=== PATIENT | female | born 1965 | race African-American/Black ===

== ENCOUNTER → 2016-08-19 | Outpatient (CLI) | payer MEDICARE, OTHER ==
[2016-05-18 12:45] VITALS: BP 138/69
[~2016-08-19] MED LIST: AMLO10TA4 PO; DICY20TA30 PO; FAMO-63 PO; GABA-586 PO; HYDR-2762 PO; HYDR-971 PO; INSU100I17 SQ; INSU100I18 SQ; LATA2.5D3 EACHEYE; LISI40TA PO; LOSA50TA6 PO; METF10002 PO; ONDA4TAB10 SL; PANT40TA5 PO; PROAIR HFA8.5 GM IH; PROM25TA10 PO; TRAZ100T12 PO; VENL150C6 PO
--- NOTE | 2016-08-19 11:38 | RAD ---
PROCEDURE MRI lumbar spine without contrast. HISTORY Low back pain with right leg radiculopathy for 6 years TECHNIQUE Sagittal and axial T1 and T2 and sagittal STIR images were acquired of the lumbar spine. Contrast: None COMPARISON None FINDINGS Most inferior fully formed intervertebral disc space is considered L5-S1. Lumbar vertebral body stature and AP alignment are adequate. There is mild degenerative disc disease L5-S1. There are posterior radial and annular tears at L5-S1. Conus terminates at L2-3. There is nonspecific edema of the posterior subcutaneous fat of the lower back. L3-4: Spinal canal and neural foramina are adequate. L4-5: There is moderate buckling of the ligamentum flavum and mild to moderate facet degenerative change. There is negligible disc osteophyte complex. There is mild narrowing of the right neural foramen, left neural foramen adequate. Spinal canal is overall adequate. L5-S1: There is severe right and mild to moderate left facet hypertrophic change. There is mild buckling of the ligamentum flavum. There is minimal bulge. There is mild narrowing of the right neural foramen, left neural foramen adequate. There is very mild narrowing of the far posterior lateral recesses greater on the right. S1-S2: Spinal canal and neural foramina are adequate. IMPRESSION 1. Most inferior fully formed intervertebral disc space is considered L5-S1. There is mild degenerative disc disease at L5-S1. There is no significant lumbar spinal stenosis, very mild narrowing of the far posterior lateral recesses greater on the right at L5-S1. There is mild narrowing of the right L4-5 and L5-S1 neural foramina. Electronically signed by: Ke Downs MD (Aug 19, 2016 11:37:03)
== END | disposition home or self-care (01) ==
LOC: MRI 09:45
PROVIDERS: ATTEND Internal Medicine
DX: M51.37 Other intervertebral disc degeneration, lumbosacral region (principal)
CPT/HCPCS: 72148

== ENCOUNTER 2017-12-23 13:56 | Emergency (ER) | payer MEDICARE, OTHER ==
[2017-12-23 14:30] LABS: BILIRUBIN,URINE NEGATIVE (NEG); CLARITY,URINE CLEAR; COLOR,URINE YELLOW; GLUCOSE,URINE NEGATIVE (NEG); NITRITE,URINE NEGATIVE (NEG); PH,URINE 5.5; PROTEIN,URINE 100 mg/dL (NEG-TRACE)
[2017-12-23 14:39] LABS: BACTERIA,URINE FEW /HPF (0-FEW); RBC,URINE 0 /HPF (0-2); SQUAMOUS EPITHELIAL CELL,UR MANY /LPF
[2017-12-23 14:40] LABS: HYALINE CASTS, URINE OCCASIONAL /HPF
[2017-12-23 14:41] LABS: ADD MAN DIFF? NO
[2017-12-23 14:47] LABS: BASO % 0 % (0-3); EOS % 0 % (0-3); HEMATOCRIT 34.9 % (36.0-47.0); HEMOGLOBIN 11.5 g/dL (12.0-15.5); LYMPH # 1.2 x10^3/uL (1.0-4.8); LYMPH % 14 % (24-48); MEAN CORPUSCULAR HEMOGLOBIN 30 pg (25-35); MEAN CORPUSCULAR HGB CONC 33 g/dL (31-37); MEAN CORPUSCULAR VOLUME 91 fL (79-100); MONO # 0.4 x10^3/uL (0.0-1.1); MONO % 5 % (0-9); NEUT # 6.5 x10^3uL (1.8-7.7); NEUT % 81 % (31-73); PLATELET COUNT 282 x10^3/uL (140-400); RED BLOOD COUNT 3.83 x10^6/uL (3.50-5.40); RED CELL DISTRIBUTION WIDTH 14.1 % (11.5-14.5); WHITE BLOOD COUNT 8.1 x10^3/uL (4.0-11.0)
[2017-12-23] MEDS: IV NORMAL SALINE 1000ML BAG 1,000 ML IV (14:55)
[2017-12-23] MEDS: ONDANSETRON PF 4 MG/2 ML VIAL. IV (14:56)
[2017-12-23 14:57] LABS: ANION GAP 6 (6-14); BLOOD UREA NITROGEN 34 mg/dL (7-20); BUN/CREATININE RATIO 38 (6-20); CALCIUM 10.1 mg/dL (8.5-10.1); CARBON DIOXIDE 30 mmol/L (21-32); CHLORIDE 102 mmol/L (98-107); CREATININE 0.9 mg/dL (0.6-1.0); GLUCOSE 126 mg/dL (70-99); SODIUM 138 mmol/L (136-145)
[2017-12-23] MEDS: MORPHINE SULFATE 4 MG/ML DISP.SYRIN. IV (14:57)
[2017-12-23 14:58] LABS: BASE EXCESS ABG 3 mmol/L (-3-3); HCO3 ABG 29 mmol/L (21-28); PCO2 ABG 47 mmHg (35-46); PH ABG 7.41 (7.35-7.45); PO2 ABG 70 mmHg (75-108); SAT O2 ABG 93 % (92-99)
[2017-12-23 14:59] LABS: FIO2 ABG 21
[2017-12-23 15:02] LABS: ALBUMIN/GLOBULIN RATIO 0.8 (1.0-1.7); ALK PHOS 94 U/L (46-116); ALT (SGPT) 38 U/L (14-59); AST (SGOT) 53 U/L (15-37); LIPASE 116 U/L (73-393); TOTAL BILIRUBIN 0.5 mg/dL (0.2-1.0); TOTAL PROTEIN 9.2 g/dL (6.4-8.2)
[2017-12-23 15:04] LABS: LACTIC ACID 1.5 mmol/L (0.4-2.0)
[2017-12-23 15:05] LABS: TROPONINI < 0.017 ng/mL (0.000-0.055)
[2017-12-23 16:38] LABS: POC GLUCOSE 120 mg/dL (70-99)
== END 2017-12-23 16:54 | disposition home or self-care (01) ==
LOC: ER 13:56
DX: R10.84 Generalized abdominal pain (principal); R11.2 Nausea with vomiting, unspecified; N28.1 Cyst of kidney, acquired; E11.40 Type 2 diabetes mellitus with diabetic neuropathy, unspecified; I10 Essential (primary) hypertension; G89.29 Other chronic pain; Z90.710 Acquired absence of both cervix and uterus; Z88.8 Allergy status to other drugs, medicaments and biological substances
CPT/HCPCS: 36415; 36600; 74176; 80053; 81001; 82805; 82962; 83605; 83690; 84484; 85025; 93005; 96361; 96374; 96375; 99285-25; J2270; J2405; J7030

== ENCOUNTER 2018-03-21 15:03 | Emergency (ER) | payer MEDICARE, OTHER ==
[~2018-03-21] VITALS: Ht 175.3 cm; Wt 108.9 kg
[~2018-03-21 15:03] MED LIST changes: +AZIT250T PO; +LISI-130 PO; -LISI40TA PO; -LOSA50TA6 PO; +LOSA50TA7 PO; -METF10002 PO; +METF10007 PO; +PROAIR HFA8.5 GM INH; +SULF1TAB24 PO; +TRAZ-86 PO; -TRAZ100T12 PO
[2018-03-21] MEDS ORDERED: ONDANSETRON PF 4 MG/2 ML VIAL. IV ONE (15:30)
[2018-03-21] MEDS ORDERED: cloNIDine HCL 0.1 MG TABLET PO ONE (15:30)
[2018-03-21] MEDS ORDERED: IV NORMAL SALINE 1000ML BAG 1,000 ML IV ONE (15:30)
[2018-03-21] MEDS ORDERED: DICYCLOMINE HCL 10 MG CAPSULE PO ONE (15:30)
[2018-03-21] MEDS ORDERED: MORPHINE SULFATE 10 MG/ML VIAL. IV ONE (15:30)
[2018-03-21] MEDS ORDERED: CONTRAST GIVEN. MC PRN (15:45)
[2018-03-21] MEDS ORDERED: IOHEXOL 300 MG/ML 100ML VIAL. IV ONE (15:45)
--- NOTE | 2018-03-21 15:50 | PHYS DOC ---
Past Medical History Past Medical History: Diabetes-Type II, Hypertension Additional Past Medical Histor: neuropathy, CHRONIC BACK PAIN Past Surgical History: Hysterectomy, Other Additional Past Surgical Histo: CARPAL TUNNEL, TUMOR BIOPSY IN LEFT BREAST, eye surgery Alcohol Use: None Drug Use: None Adult General Chief Complaint Chief Complaint: NAUSEA/VOMITING/DIARRHA HPI HPI Patient is a 53 year old female with history of hypertension, diabetes type 2, who presents today complaining of 8 out of 10 generalized abdominal pain with nausea vomiting and slight loose stools that begun today. Patient states she believes she had bad chicken Seven yesterday night, she also states it could be her blood sugar though per EMS report her blood sugar was 154. Patient denies any hematemesis or melena. She was diaphoretic on arrival to the ED. She states the diarrhea is not as bad as the nausea and vomiting. Review of Systems Review of Systems Constitutional: Denies fever or chills [] Eyes: Denies change in visual acuity, redness, or eye pain [] HENT: Denies nasal congestion or sore throat [] Respiratory: Denies cough or shortness of breath [] Cardiovascular: No additional information not addressed in HPI [] GI: Reports abdominal pain, nausea vomiting and diarrhea : Denies dysuria or hematuria [] Musculoskeletal: Denies back pain or joint pain [] Integument: Denies rash or skin lesions [] Neurologic: Denies headache, focal weakness or sensory changes [] All other systems were reviewed and found to be within normal limits, except as documented in this note. Current Medications Current Medications Current Medications Medications (Trade) Dose Ordered Sig/Maribel Start Time Stop Time Status Last Admin Dose Admin Clonidine HCl (Catapres) 0.2 mg 1X ONCE 03/21/18 15:30 03/21/18 15:34 DC 03/21/18 16:10 0.2 MG Dicyclomine HCl (Bentyl) 20 mg 1X ONCE 03/21/18 15:30 03/21/18 15:34 DC 03/21/18 16:09 20 MG Info (CONTRAST GIVEN -- Rx MONITORING) 1 each PRN DAILY PRN 03/21/18 15:45 03/23/18 15:44 Iohexol (Omnipaque 300 Mg/ml) 75 ml 1X ONCE 03/21/18 15:45 03/21/18 15:46 DC 03/21/18 17:15 60 ML Morphine Sulfate (Morphine Sulfate) 5 mg 1X ONCE 03/21/18 15:30 03/21/18 15:34 DC 03/21/18 16:10 5 MG Ondansetron HCl (Zofran) 4 mg 1X ONCE 03/21/18 15:30 03/21/18 15:34 DC 03/21/18 16:09 4 MG Sodium Chloride 1,000 ml @ 1,000 mls/hr 1X ONCE 03/21/18 15:30 03/21/18 16:29 DC 03/21/18 16:08 1,000 MLS/HR Allergies Allergies Allergies Coded Allergies Type Severity Reaction Last Updated Verified lisinopril Allergy Severe Swelling 05/17/16 Yes ibuprofen Adverse Reaction Intermediate Nausea and Vomiting 12/22/15 Yes Physical Exam Physical Exam Constitutional: Well developed, well nourished, no acute distress, non-toxic appearance. [] HENT: Normocephalic, atraumatic, bilateral external ears normal, oropharynx moist, no oral exudates, nose normal. [] Eyes: PERRLA, EOMI, conjunctiva normal, no discharge. [] Neck: Normal range of motion, no tenderness, supple, no stridor. [] Cardiovascular:Heart rate regular rhythm, no murmur [] Lungs & Thorax: Bilateral breath sounds clear to auscultation [] Abdomen: Old healed surgical incision midline abdomen. Bowel sounds normal, soft , diffuse abdominal tenderness, no masses, no pulsatile masses. [] Skin: Warm, dry, no erythema, no rash. [] Back: No tenderness, no CVA tenderness. [] Extremities: No tenderness, no cyanosis, no clubbing, ROM intact, no edema. [] Neurologic: Alert and oriented X 3, normal motor function, normal sensory function, no focal deficits noted. Psychologic: Affect normal, judgement normal, mood normal. [] Current Patient Data Vital Signs Vital Signs Date Time Temp Pulse Resp B/P (MAP) Pulse Ox O2 Delivery O2 Flow Rate FiO2 03/21/18 18:34 124/60 (81) 03/21/18 18:04 98 97 Room Air 03/21/18 16:10 18 03/21/18 15:03 97.6 97.6 Lab Values Laboratory Tests Test 03/21/18 16:30 03/21/18 17:45 White Blood Count 9.1 x10^3/uL (4.0-11.0) Red Blood Count 4.28 x10^6/uL (3.50-5.40) Hemoglobin 13.4 g/dL (12.0-15.5) Hematocrit 39.6 % (36.0-47.0) Mean Corpuscular Volume 93 fL (79-100) Mean Corpuscular Hemoglobin 31 pg (25-35) Mean Corpuscular Hemoglobin Concent 34 g/dL (31-37) Red Cell Distribution Width 14.4 % (11.5-14.5) Platelet Count 276 x10^3/uL (140-400) Neutrophils (%) (Auto) 82 % (31-73) H Lymphocytes (%) (Auto) 13 % (24-48) L Monocytes (%) (Auto) 4 % (0-9) Eosinophils (%) (Auto) 1 % (0-3) Basophils (%) (Auto) 0 % (0-3) Neutrophils # (Auto) 7.5 x10^3uL (1.8-7.7) Lymphocytes # (Auto) 1.2 x10^3/uL (1.0-4.8) Monocytes # (Auto) 0.3 x10^3/uL (0.0-1.1) Eosinophils # (Auto) 0.0 x10^3/uL (0.0-0.7) Basophils # (Auto) 0.0 x10^3/uL (0.0-0.2) Sodium Level 147 mmol/L (136-145) H Potassium Level 3.7 mmol/L (3.5-5.1) Chloride Level 106 mmol/L (98-107) Carbon Dioxide Level 28 mmol/L (21-32) Anion Gap 13 (6-14) Blood Urea Nitrogen 31 mg/dL (7-20) H Creatinine 1.4 mg/dL (0.6-1.0) H Estimated GFR (Cockcroft-Gault) 47.2 BUN/Creatinine Ratio 22 (6-20) H Glucose Level 171 mg/dL (70-99) H Calcium Level 10.6 mg/dL (8.5-10.1) H Total Bilirubin 0.2 mg/dL (0.2-1.0) Aspartate Amino Transferase (AST) 21 U/L (15-37) Alanine Aminotransferase (ALT) 37 U/L (14-59) Alkaline Phosphatase 103 U/L (46-116) Troponin I Quantitative < 0.017 ng/mL (0.000-0.055) [id number]-Type Natriuretic Peptide 21 pg/mL (0-124) Total Protein 9.0 g/dL (6.4-8.2) H Albumin 4.1 g/dL (3.4-5.0) Albumin/Globulin Ratio 0.8 (1.0-1.7) L Lipase 178 U/L (73-393) Ethyl Alcohol Level < 10 mg/dL (0-10) Urine Color Yellow Urine Clarity Clear Urine pH 5.0 Urine Specific [place] >=1.030 Urine Protein 100 mg/dL (NEG-TRACE) Urine Glucose (UA) >=1000 mg/dL (NEG) Urine Ketones (Stick) Negative mg/dL (NEG) Urine Blood Negative (NEG) Urine Nitrite Negative (NEG) Urine Bilirubin Negative (NEG) Urine Urobilinogen Dipstick 0.2 mg/dL (0.2 mg/dL) Urine Leukocyte Esterase Negative (NEG) Urine RBC 0 /HPF (0-2) Urine WBC Occ /HPF (0-4) Urine Squamous Epithelial Cells Occ /LPF Urine Bacteria 0 /HPF (0-FEW) Urine Opiates Screen Pos (NEG) Urine Methadone Screen Neg (NEG) Urine Barbiturates Neg (NEG) Urine Phencyclidine Screen Neg (NEG) Urine Amphetamine/Methamphetamine Neg (NEG) Urine Benzodiazepines Screen Neg (NEG) Urine Cocaine Screen Neg (NEG) Urine Cannabinoids Screen Pos (NEG) Urine Ethyl Alcohol Neg (NEG) Laboratory Tests 03/21/18 16:30 Laboratory Tests 03/21/18 16:30 EKG EKG 16:[address] Simmons sinus rhythm heart rate 94 no STEMI[] Radiology/Procedures Radiology/Procedures []PROCEDURE: PORTABLE CHEST 1V EXAM: CHEST 1 VIEW History: Chest pain COMPARISON: 02/16/2017 TECHNIQUE: Single portable radiograph of the chest FINDINGS: The cardiac silhouette is unremarkable. The lungs are clear bilaterally. The costophrenic sulci are clear and well demarcated. IMPRESSION: No radiographic evidence of an acute cardiopulmonary process. Electronically signed by: Manuel Camp MD (03/21/2018 5:09 PM) [facility] DICTATED and SIGNED BY: MANUEL CAMP MD DATE: 03/21/18 1945 Course & Med Decision Making Course & Med Decision Making Pertinent Labs and Imaging studies reviewed. (See chart for details) This is a 53-year-old female patient presented to the ED today complaining of nausea, vomiting and slight loose stools that begun today. BP on arrival was 170/104 she has not taken her BP medicines. She was given Clonidine 0.2mg. CBC with normal WBC, CMP with creatinine of 1.4, BUN 31. 18:[address] Mock. zayra: pt has normal ct and urine. other labs look okay 650 she is eatingmeal and feeling better. bp 124 systolic. d/c h9ome Dragon Disclaimer Dragon Disclaimer This electronic medical record was generated, in whole or in part, using a voice recognition dictation system. Departure Departure Impression: Primary Impression: Abdominal pain Additional Impression: Hypertension Disposition: 01 HOME, SELF-CARE Condition: STABLE Referrals: ANAND BRENNAN (PCP) Problem Qualifiers PREM GODWIN APRN Mar 21, 2018 15:50 LORENZO MOCK MD Mar 21, 2018 18:55
--- NOTE | 2018-03-21 16:39 | EKG ---
[facility] [address] [place] [address] Test Date: 2018-03-21 Test Time: 16:19:33 Pat Name: LADI NUNEZ Department: Room: Gender: F Medicare Contact Specialist: : 1965 Requested By: PREM GODWIN Order Number: [id number] Reading MD: Cali Magdaleno MD Measurements Intervals [place] Rate: 94 P: 90 CO: 112 QRS: 39 QRSD: 108 T: 59 QT: 378 QTc: 478 Interpretive Statements SINUS RHYTHM Electronically Signed On 03-22-2018 14:03:42 CDT by Cali Magdaleno MD
[2018-03-21 16:43] LABS: BASO % 0 % (0-3); EOS % 1 % (0-3); HEMATOCRIT 39.6 % (36.0-47.0); HEMOGLOBIN 13.4 g/dL (12.0-15.5); LYMPH # 1.2 x10^3/uL (1.0-4.8); LYMPH % 13 % (24-48); MEAN CORPUSCULAR HEMOGLOBIN 31 pg (25-35); MEAN CORPUSCULAR HGB CONC 34 g/dL (31-37); MEAN CORPUSCULAR VOLUME 93 fL (79-100); MONO # 0.3 x10^3/uL (0.0-1.1); MONO % 4 % (0-9); NEUT # 7.5 x10^3uL (1.8-7.7); NEUT % 82 % (31-73); PLATELET COUNT 276 x10^3/uL (140-400); RED BLOOD COUNT 4.28 x10^6/uL (3.50-5.40); RED CELL DISTRIBUTION WIDTH 14.4 % (11.5-14.5); WHITE BLOOD COUNT 9.1 x10^3/uL (4.0-11.0)
[2018-03-21 16:53] LABS: CALCIUM 10.6 mg/dL (8.5-10.1); CREATININE 1.4 mg/dL (0.6-1.0); GFR 47.2; POTASSIUM 3.7 mmol/L (3.5-5.1)
[2018-03-21 17:00] LABS: ALBUMIN 4.1 g/dL (3.4-5.0); ALBUMIN/GLOBULIN RATIO 0.8 (1.0-1.7); TOTAL BILIRUBIN 0.2 mg/dL (0.2-1.0)
--- NOTE | 2018-03-21 17:12 | RAD ---
EXAM: CHEST 1 VIEW History: Chest pain COMPARISON: 02/16/2017 TECHNIQUE: Single portable radiograph of the chest FINDINGS: The cardiac silhouette is unremarkable. The lungs are clear bilaterally. The costophrenic sulci are clear and well demarcated. IMPRESSION: No radiographic evidence of an acute cardiopulmonary process. Electronically signed by: Manuel Camp MD (03/21/2018 5:09 PM) [facility]
[2018-03-21 17:54] LABS: BILIRUBIN,URINE NEGATIVE (NEG); CLARITY,URINE CLEAR; COLOR,URINE YELLOW; NITRITE,URINE NEGATIVE (NEG); PROTEIN,URINE 100 mg/dL (NEG-TRACE); UROBILINOGEN,URINE 0.2 mg/dL (0.2 mg/dL)
[2018-03-21 18:00] LABS: BARBITURATES NEG (NEG); BENZODIAZEPINES NEG (NEG); CANNABINOIDS POS (NEG); COCAINE NEG (NEG); METHADONE NEG (NEG); OPIATES POS (NEG); PHENCYCLIDINE NEG (NEG)
[2018-03-21 18:02] LABS: BACTERIA,URINE 0 /HPF (0-FEW); RBC,URINE 0 /HPF (0-2); SQUAMOUS EPITHELIAL CELL,UR OCC /LPF; WBC,URINE OCC /HPF (0-4)
[2018-03-21 18:03] LABS: AMPHETAMINE/METHAMPHETAMINE NEG (NEG)
--- NOTE | 2018-03-21 18:14 | RAD ---
CT scan of the abdomen and pelvis with contrast 03/21/2018 CLINICAL HISTORY: Abdominal pain, vomiting and diarrhea. TECHNIQUE: After the intravenous administration of 60 cc of Omnipaque 300, contiguous, 5 mm axial sections were obtained through the abdomen and pelvis. One or more of the following individualized dose reduction techniques were utilized for this study: 1. Automated exposure control. 2. Adjustment of the mA and/or kV according to patient size. 3. Use of iterative reconstruction technique. FINDINGS: Comparison study is dated 12/23/2017. Images through the lung bases demonstrate mild cardiomegaly. A 6 mm calcified granuloma is seen involving right lower lobe, unchanged. Minimal dependent subsegmental atelectasis is seen involving both lower lobes. The liver, spleen, pancreas, adrenal glands and right kidney are within normal limits. A 2 mm nonobstructing calculus is seen involving the midpole of the left kidney. Atherosclerotic calcification abdominal aorta is seen. The abdominal aorta tapers normally. The gallbladder is well-distended. No free fluid or free air is within the abdomen. Air and stool is seen throughout the colon. There is no evidence of bowel obstruction. The patient appears to be post appendectomy. Images through the pelvis demonstrate the urinary bladder distended with urine. Calcifications are seen within the pelvis consistent with phleboliths. No free fluid is seen. Very mild S-shaped curvature of the thoracolumbar spine is seen. Degenerative changes are seen involving the lower thoracic and throughout the lumbar spine and both hips. IMPRESSION: No acute abnormality is seen. Electronically signed by: Joseph Rey MD (03/21/2018 6:10 PM) [facility]
[2018-03-21 18:34] VITALS: BP 124/60
== END 2018-03-21 19:06 | disposition home or self-care (01) ==
LOC: ER 15:03
DX: R10.84 Generalized abdominal pain (principal); I10 Essential (primary) hypertension; R11.2 Nausea with vomiting, unspecified; R19.7 Diarrhea, unspecified; G89.29 Other chronic pain; E11.40 Type 2 diabetes mellitus with diabetic neuropathy, unspecified; Z90.710 Acquired absence of both cervix and uterus
CPT/HCPCS: 36415; 71045; 74177; 80053; 80307; 81001; 83690; 83880; 84484; 85025; 93005; 96361; 96374; 96375; 99285; G0480; J2270; J2405; J7030; Q9967; G0479

== ENCOUNTER 2018-03-23 12:59 | Inpatient (IN) | payer MEDICARE, OTHER ==
[~2018-03-23] VITALS: Ht 175.3 cm; Wt 104.3 kg
[2018-03-23] MEDS ORDERED: ONDANSETRON PF 4 MG/2 ML VIAL. IV ONE (14:00)
[2018-03-23] MEDS ORDERED: IV NORMAL SALINE 1000ML BAG 1,000 ML IV ONE (14:00)
[2018-03-23] MEDS ORDERED: amLODIPine BESYLATE 5 MG TABLET PO ONE (14:00)
--- NOTE | 2018-03-23 14:01 | PHYS DOC ---
Past Medical History Past Medical History: Diabetes-Type II, Hypertension Additional Past Medical Histor: neuropathy, CHRONIC BACK PAIN Past Surgical History: Hysterectomy, Other Additional Past Surgical Histo: CARPAL TUNNEL, TUMOR BIOPSY IN LEFT BREAST, eye surgery Alcohol Use: None Drug Use: None Adult General Chief Complaint Chief Complaint: NAUSEA/VOMITING/DIARRHA HPI HPI Patient is a 53 year old F who presents with generalized abdominal pain and n/ v for the last 2 days. She was seen here two days ago for the same. She had labs and fluids, felt better and was dx home with viral enteritis. She denies having diarrhea today. She denies fever or chills. Review of Systems Review of Systems Constitutional: Denies fever or chills [] Respiratory: Denies cough or shortness of breath [] Cardiovascular: Denies chest pain or palpitations. GI: Reports abdominal pain, nausea, vomiting, and diarrhea [] : Denies dysuria or hematuria [] Musculoskeletal: Reports lower back pain - exacerbation of chronic pain Integument: Denies rash or skin lesions [] All other systems were reviewed and found to be within normal limits, except as documented in this note. Current Medications Current Medications Current Medications Medications (Trade) Dose Ordered Sig/Maribel Start Time Stop Time Status Last Admin Dose Admin Amlodipine Besylate (Norvasc) 10 mg 1X ONCE 03/23/18 14:00 03/23/18 14:16 DC 03/23/18 15:15 10 MG Fentanyl Citrate (Fentanyl 2ml Vial) 50 mcg 1X ONCE 03/23/18 15:15 03/23/18 15:17 DC 03/23/18 15:46 50 MCG Ondansetron HCl (Zofran) 4 mg 1X ONCE 03/23/18 14:00 03/23/18 14:16 DC 03/23/18 14:24 4 MG Sodium Chloride 1,000 ml @ 1,000 mls/hr 1X ONCE 03/23/18 14:00 03/23/18 14:59 DC 03/23/18 14:23 1,000 MLS/HR Allergies Allergies Allergies Coded Allergies Type Severity Reaction Last Updated Verified lisinopril Allergy Severe Swelling 05/17/16 Yes ibuprofen Adverse Reaction Intermediate Nausea and Vomiting 12/22/15 Yes Physical Exam Physical Exam Constitutional: Well developed, well nourished, no acute distress, non-toxic appearance. [] HENT: Normocephalic, atraumatic Eyes: PERRLA, EOMI, conjunctiva normal, no discharge. [] Neck: Normal range of motion, no tenderness, supple, no stridor. [] Cardiovascular:Heart rate regular rhythm, no murmur [] Lungs & Thorax: Bilateral breath sounds clear to auscultation [] Abdomen: Bowel sounds normal, soft, diffuse tenderness Skin: Warm, dry, no erythema, no rash. [] Back: No tenderness, no CVA tenderness. [] Extremities: No tenderness, no cyanosis, no clubbing, ROM intact, no edema. [] Neurologic: Alert and oriented X 3, normal motor function, normal sensory function, no focal deficits noted. [] Psychologic: Affect normal, judgement normal, mood normal. [] Current Patient Data Vital Signs Vital Signs Date Time Temp Pulse Resp B/P (MAP) Pulse Ox O2 Delivery O2 Flow Rate FiO2 03/23/18 17:35 112 218/109 (145) 100 Room Air 03/23/18 15:46 24 03/23/18 13:29 97.3 97.3 Lab Values Laboratory Tests Test 03/23/18 14:35 03/23/18 14:50 White Blood Count 12.1 x10^3/uL (4.0-11.0) H Red Blood Count 4.07 x10^6/uL (3.50-5.40) Hemoglobin 12.7 g/dL (12.0-15.5) Hematocrit 37.5 % (36.0-47.0) Mean Corpuscular Volume 92 fL (79-100) Mean Corpuscular Hemoglobin 31 pg (25-35) Mean Corpuscular Hemoglobin Concent 34 g/dL (31-37) Red Cell Distribution Width 14.8 % (11.5-14.5) H Platelet Count 298 x10^3/uL (140-400) Neutrophils (%) (Auto) 80 % (31-73) H Lymphocytes (%) (Auto) 16 % (24-48) L Monocytes (%) (Auto) 4 % (0-9) Eosinophils (%) (Auto) 1 % (0-3) Basophils (%) (Auto) 1 % (0-3) Neutrophils # (Auto) 9.7 x10^3uL (1.8-7.7) H Lymphocytes # (Auto) 1.9 x10^3/uL (1.0-4.8) Monocytes # (Auto) 0.4 x10^3/uL (0.0-1.1) Eosinophils # (Auto) 0.1 x10^3/uL (0.0-0.7) Basophils # (Auto) 0.1 x10^3/uL (0.0-0.2) Sodium Level 146 mmol/L (136-145) H Potassium Level 3.6 mmol/L (3.5-5.1) Chloride Level 105 mmol/L (98-107) Carbon Dioxide Level 29 mmol/L (21-32) Anion Gap 12 (6-14) Blood Urea Nitrogen 27 mg/dL (7-20) H Creatinine 1.1 mg/dL (0.6-1.0) H Estimated GFR (Cockcroft-Gault) 62.4 BUN/Creatinine Ratio 25 (6-20) H Glucose Level 156 mg/dL (70-99) H Calcium Level 11.2 mg/dL (8.5-10.1) H Total Bilirubin 0.3 mg/dL (0.2-1.0) Aspartate Amino Transferase (AST) 29 U/L (15-37) Alanine Aminotransferase (ALT) 37 U/L (14-59) Alkaline Phosphatase 98 U/L (46-116) Total Protein 9.9 g/dL (6.4-8.2) H Albumin 4.4 g/dL (3.4-5.0) Albumin/Globulin Ratio 0.8 (1.0-1.7) L Lipase 110 U/L (73-393) Urine Collection Type Unknown Urine Color Yellow Urine Clarity Clear Urine pH 5.0 Urine Specific [place] >=1.030 Urine Protein 100 mg/dL (NEG-TRACE) Urine Glucose (UA) >=1000 mg/dL (NEG) Urine Ketones (Stick) Negative mg/dL (NEG) Urine Blood Trace (NEG) Urine Nitrite Negative (NEG) Urine Bilirubin Negative (NEG) Urine Urobilinogen Dipstick 0.2 mg/dL (0.2 mg/dL) Urine Leukocyte Esterase Negative (NEG) Urine RBC 1-2 /HPF (0-2) Urine WBC 1-4 /HPF (0-4) Urine Squamous Epithelial Cells Mod /LPF Urine Bacteria Few /HPF (0-FEW) Urine Mucus Slight /LPF Urine Yeast Present /HPF Laboratory Tests 03/23/18 14:35 Laboratory Tests 03/23/18 14:35 EKG EKG EKG -- Rate 95, NSR, no stemi, normal axis[] Radiology/Procedures Radiology/Procedures [] Course & Med Decision Making Course & Med Decision Making Pertinent Labs and Imaging studies reviewed. (See chart for details) Patient was able to tolerate some chicken broth. However, when we talk about disposition, she begins to cry and says she is hurting too bad to go home. She continues to have pain and nausea despite meds. d/w Dr. Martin, accepts admission. Plan: admit Dragon Disclaimer Dragon Disclaimer This electronic medical record was generated, in whole or in part, using a voice recognition dictation system. Departure Departure Impression: Primary Impression: Intractable abdominal pain Disposition: ADMITTED INPATIENT Admitting Physician: Xie. Siddiqui Condition: STABLE Referrals: ANAND BRENNAN (PCP) Attending Signature Attending Signature I have reviewed the PA/NETWORK ENGINEER's note and plan of care. I was available for consultation as needed during the patient's visit in the emergency department. I agree with the clinical impression, plan, and disposition. EMIL TIPTON APRN Mar 23, 2018 14:01 SONY RUBNI DO Mar 26, 2018 06:57
[2018-03-23 14:53] LABS: CALCIUM 11.2 mg/dL (8.5-10.1); CREATININE 1.1 mg/dL (0.6-1.0); GFR 62.4; POTASSIUM 3.6 mmol/L (3.5-5.1)
[2018-03-23 15:02] LABS: BASO # 0.1 x10^3/uL (0.0-0.2); BASO % 1 % (0-3); EOS # 0.1 x10^3/uL (0.0-0.7); EOS % 1 % (0-3); HEMATOCRIT 37.5 % (36.0-47.0); HEMOGLOBIN 12.7 g/dL (12.0-15.5); LYMPH # 1.9 x10^3/uL (1.0-4.8); LYMPH % 16 % (24-48); MEAN CORPUSCULAR HEMOGLOBIN 31 pg (25-35); MEAN CORPUSCULAR HGB CONC 34 g/dL (31-37); MEAN CORPUSCULAR VOLUME 92 fL (79-100); MONO # 0.4 x10^3/uL (0.0-1.1); MONO % 4 % (0-9); NEUT # 9.7 x10^3uL (1.8-7.7); NEUT % 80 % (31-73); PLATELET COUNT 298 x10^3/uL (140-400); RED BLOOD COUNT 4.07 x10^6/uL (3.50-5.40); RED CELL DISTRIBUTION WIDTH 14.8 % (11.5-14.5); WHITE BLOOD COUNT 12.1 x10^3/uL (4.0-11.0)
[2018-03-23 15:03] LABS: ALBUMIN 4.4 g/dL (3.4-5.0); ALBUMIN/GLOBULIN RATIO 0.8 (1.0-1.7); TOTAL BILIRUBIN 0.3 mg/dL (0.2-1.0); TOTAL PROTEIN 9.9 g/dL (6.4-8.2)
[2018-03-23 15:03] LABS: BILIRUBIN,URINE NEGATIVE (NEG); CLARITY,URINE CLEAR; COLOR,URINE YELLOW; NITRITE,URINE NEGATIVE (NEG); PROTEIN,URINE 100 mg/dL (NEG-TRACE); UROBILINOGEN,URINE 0.2 mg/dL (0.2 mg/dL)
[2018-03-23] MEDS ORDERED: fentaNYL PF VIAL 100 MCG/2 ML VIAL IV ONE (15:15)
[2018-03-23 15:26] LABS: BACTERIA,URINE FEW /HPF (0-FEW); SQUAMOUS EPITHELIAL CELL,UR MOD /LPF; YEAST,URINE PRESENT /HPF
--- NOTE | 2018-03-23 16:49 | EKG ---
[facility] [address] [place] [address] Test Date: 2018-03-23 Test Time: 13:47:15 Pat Name: LADI NUNEZ Department: Room: Gender: F Chief Radiologic Technologist: : 1965 Requested By: EMIL TIPTON Order Number: [id number] Reading MD: Measurements Intervals [place] Rate: 94 P: -56 MD: 106 QRS: 34 QRSD: 104 T: 61 QT: 364 QTc: 460 Interpretive Statements SINUS RHYTHM LEFT ATRIAL ABNORMALITY NON SPECIFIC ST DEPRESSION ABNORMAL ECG No previous ECG available for comparison
[2018-03-23] MEDS ORDERED: MORPHINE SULFATE 4 MG/ML VIAL. IV PRN (18:45)
[2018-03-23] MEDS ORDERED: MORPHINE SULFATE 4 MG/ML VIAL. IV ONE (18:45)
[2018-03-23] MEDS ORDERED: HALOPERIDOL LACTATE 5 MG/ML VIAL. IVP ONE (18:45)
[2018-03-23] MEDS ORDERED: ONDANSETRON PF 4 MG/2 ML VIAL. IV PRN (18:45)
[2018-03-23 19:00] VITALS: BP 206/101
[2018-03-23] MEDS ORDERED: INSU100V13 SQ (20:18)
[2018-03-23] MEDS ORDERED: LABETALOL 20 MG/4 ML DISP.SYRIN. IVP PRN (20:30)
[2018-03-23] MEDS ORDERED: INSULIN GLARGINE 300 UNITS/3 ML INSULN.PEN. SQ ONE (20:30)
[2018-03-23] MEDS ORDERED: DEXTROSE 50% 25 GM / 50ML DISP.SYRIN. IV PRN (20:30)
[2018-03-23] MEDS ORDERED: ALBUTEROL SULFATE 2.5 MG/3 ML NEBU. NEB PRN (20:30)
[2018-03-23] MEDS ORDERED: diphenhydrAMINE HCL 25 MG CAPSULE PO PRN (20:30)
[2018-03-23] MEDS: IV NORMAL SALINE 1000ML BAG 1,000 ML IV SCH (20:51)
[2018-03-23] MEDS: LOSARTAN POTASSIUM 50 MG TABLET. PO SCH (21:14)
[2018-03-23 23:00] VITALS: BP 150/54
[2018-03-24 03:00] VITALS: BP 139/77
[2018-03-24 06:29] LABS: BASO % 0 % (0-3); EOS % 0 % (0-3); HEMATOCRIT 34.4 % (36.0-47.0); HEMOGLOBIN 11.5 g/dL (12.0-15.5); LYMPH # 3.1 x10^3/uL (1.0-4.8); LYMPH % 32 % (24-48); MEAN CORPUSCULAR HEMOGLOBIN 31 pg (25-35); MEAN CORPUSCULAR HGB CONC 34 g/dL (31-37); MEAN CORPUSCULAR VOLUME 92 fL (79-100); MONO # 0.9 x10^3/uL (0.0-1.1); MONO % 9 % (0-9); NEUT # 5.8 x10^3uL (1.8-7.7); NEUT % 59 % (31-73); PLATELET COUNT 268 x10^3/uL (140-400); RED BLOOD COUNT 3.72 x10^6/uL (3.50-5.40); RED CELL DISTRIBUTION WIDTH 14.7 % (11.5-14.5); WHITE BLOOD COUNT 9.9 x10^3/uL (4.0-11.0)
[2018-03-24 07:00] VITALS: BP 142/81
[2018-03-24 07:17] LABS: ALBUMIN 3.4 g/dL (3.4-5.0); ALBUMIN/GLOBULIN RATIO 0.7 (1.0-1.7); CREATININE 1.1 mg/dL (0.6-1.0); GFR 62.4; POTASSIUM 3.7 mmol/L (3.5-5.1); TOTAL BILIRUBIN 0.3 mg/dL (0.2-1.0)
[2018-03-24] MEDS: LOSARTAN POTASSIUM 50 MG TABLET. PO SCH (08:32)
[2018-03-24] MEDS: INSULIN LISPRO 300 UNITS/3 ML INSULN.PEN. SQ SCH ×2 (08:36→13:41)
--- NOTE | 2018-03-24 08:39 | PDOC2 ---
GI CONSULT Reason For Consult: Abd pain HPI: HPI: 53 y/o female who has been ill w/ n/v since 03/21/18 after eating chicken adrianne. Came to ER, CT showed no acute abnormality, symptoms improved (she says because was given morphine), was sent home. Appetite didn't improve, tried to eat an orange yesterday, vomited, back to ER and admitted. BP noted to be elevated (initially 224/99). Again, symptoms have improved, she tolerated clear liquids for breakfast, and is asking to go home today. She has a h/o intermittent n/v since 2011 - thinks related to eating certain foods ("treating myself" - names ice cream and cake). H/o DM, seems battles some with hyperglycemia and hypoglycemia. Not sure what last A1c was. Denies reflux/heartburn, dysphagia, hematemesis, abd pain, constipation, hematochezia, melena, and weight loss. Had diarrhea once the day symptoms began. Also talks about back pain - also chronic since 2011 after hysterectomy - worse when the weather changes, uses hydrocodone 7.5mg PRN. No previous EGD. [facility] ( Dr. Lisette Lynne) in 2013 (for screening) showed 2mm adenomatous polyp @ splenic flexure and external hemorrhoids. No GB or pancreas history. Fatty liver noted on past US. PMH: PMH: HTN, HLD, DM, peripheral neuropathy, fatty liver, OA, anxiety, depression, chronic back pain, , hysterectomy, breast biopsy, right CTR FH: Family History: No pertinent hx Social History: Smoke: Quit ALCOHOL: other (used to drink, quit) Drugs: Marijuana ROS: GEN: Denies fevers, chills, sweats HEENT: Denies blurred vision, sore throat CV: Denies chest pain RESP: Denies shortness of air, cough GI: Per HPI : Denies hematuria, dysuria ENDO: Denies weight changes NEURO: Denies confusion, dizziness MSK: +chronic back pain SKIN: Denies jaundice, pruritus Vitals: Vitals: Vital Signs Date Time Temp Pulse Resp B/P (MAP) Pulse Ox O2 Delivery O2 Flow Rate FiO2 03/24/18 07:47 100 Room Air 03/24/18 07:00 98.8 78 18 142/81 (101) 98.8 Labs: Labs: Laboratory Tests Test 03/23/18 14:35 03/23/18 14:50 03/23/18 19:47 03/24/18 05:40 White Blood Count 12.1 x10^3/uL (4.0-11.0) 9.9 x10^3/uL (4.0-11.0) Red Blood Count 4.07 x10^6/uL (3.50-5.40) 3.72 x10^6/uL (3.50-5.40) Hemoglobin 12.7 g/dL (12.0-15.5) 11.5 g/dL (12.0-15.5) Hematocrit 37.5 % (36.0-47.0) 34.4 % (36.0-47.0) Mean Corpuscular Volume 92 fL (79-100) 92 fL (79-100) Mean Corpuscular Hemoglobin 31 pg (25-35) 31 pg (25-35) Mean Corpuscular Hemoglobin Concent 34 g/dL (31-37) 34 g/dL (31-37) Red Cell Distribution Width 14.8 % (11.5-14.5) 14.7 % (11.5-14.5) Platelet Count 298 x10^3/uL (140-400) 268 x10^3/uL (140-400) Neutrophils (%) (Auto) 80 % (31-73) 59 % (31-73) Lymphocytes (%) (Auto) 16 % (24-48) 32 % (24-48) Monocytes (%) (Auto) 4 % (0-9) 9 % (0-9) Eosinophils (%) (Auto) 1 % (0-3) 0 % (0-3) Basophils (%) (Auto) 1 % (0-3) 0 % (0-3) Neutrophils # (Auto) 9.7 x10^3uL (1.8-7.7) 5.8 x10^3uL (1.8-7.7) Lymphocytes # (Auto) 1.9 x10^3/uL (1.0-4.8) 3.1 x10^3/uL (1.0-4.8) Monocytes # (Auto) 0.4 x10^3/uL (0.0-1.1) 0.9 x10^3/uL (0.0-1.1) Eosinophils # (Auto) 0.1 x10^3/uL (0.0-0.7) 0.0 x10^3/uL (0.0-0.7) Basophils # (Auto) 0.1 x10^3/uL (0.0-0.2) 0.0 x10^3/uL (0.0-0.2) Sodium Level 146 mmol/L (136-145) 144 mmol/L (136-145) Potassium Level 3.6 mmol/L (3.5-5.1) 3.7 mmol/L (3.5-5.1) Chloride Level 105 mmol/L (98-107) 106 mmol/L (98-107) Carbon Dioxide Level 29 mmol/L (21-32) 27 mmol/L (21-32) Anion Gap 12 (6-14) 11 (6-14) Blood Urea Nitrogen 27 mg/dL (7-20) 22 mg/dL (7-20) Creatinine 1.1 mg/dL (0.6-1.0) 1.1 mg/dL (0.6-1.0) Estimated GFR (Cockcroft-Gault) 62.4 62.4 BUN/Creatinine Ratio 25 (6-20) 20 (6-20) Glucose Level 156 mg/dL (70-99) 155 mg/dL (70-99) Calcium Level 11.2 mg/dL (8.5-10.1) 10.0 mg/dL (8.5-10.1) Total Bilirubin 0.3 mg/dL (0.2-1.0) 0.3 mg/dL (0.2-1.0) Aspartate Amino Transf (AST/SGOT) 29 U/L (15-37) 22 U/L (15-37) Alanine Aminotransferase (ALT/SGPT) 37 U/L (14-59) 30 U/L (14-59) Alkaline Phosphatase 98 U/L (46-116) 79 U/L (46-116) Total Protein 9.9 g/dL (6.4-8.2) 8.0 g/dL (6.4-8.2) Albumin 4.4 g/dL (3.4-5.0) 3.4 g/dL (3.4-5.0) Albumin/Globulin Ratio 0.8 (1.0-1.7) 0.7 (1.0-1.7) Lipase 110 U/L (73-393) Urine Collection Type Unknown Urine Color Yellow Urine Clarity Clear Urine pH 5.0 Urine Specific [place] >=1.030 Urine Protein 100 mg/dL (NEG-TRACE) Urine Glucose (UA) >=1000 mg/dL (NEG) Urine Ketones (Stick) Negative mg/dL (NEG) Urine Blood Trace (NEG) Urine Nitrite Negative (NEG) Urine Bilirubin Negative (NEG) Urine Urobilinogen Dipstick 0.2 mg/dL (0.2 mg/dL) Urine Leukocyte Esterase Negative (NEG) Urine RBC 1-2 /HPF (0-2) Urine WBC 1-4 /HPF (0-4) Urine Squamous Epithelial Cells Mod /LPF Urine Bacteria Few /HPF (0-FEW) Urine Mucus Slight /LPF Urine Yeast Present /HPF Glucose (Fingerstick) 152 mg/dL (70-99) Test 03/24/18 08:19 Glucose (Fingerstick) 157 mg/dL (70-99) Allergies: Coded Allergies: lisinopril (Verified Allergy, Severe, Swelling, 05/17/16) angioedema ibuprofen (Verified Adverse Reaction, Intermediate, Nausea and Vomiting, ) Medications: Current Medications Medications (Trade) Dose Ordered Sig/Maribel Route PRN Reason Start Time Stop Time Status Last Admin Dose Admin Amlodipine Besylate (Norvasc) 10 mg 1X ONCE PO 03/23/18 14:00 03/23/18 14:16 DC 03/23/18 15:15 Ondansetron HCl (Zofran) 4 mg 1X ONCE IV 03/23/18 14:00 03/23/18 14:16 DC 03/23/18 14:24 Sodium Chloride 1,000 ml @ 1,000 mls/hr 1X ONCE IV 03/23/18 14:00 03/23/18 14:59 DC 03/23/18 14:23 Fentanyl Citrate (Fentanyl 2ml Vial) 50 mcg 1X ONCE IV 03/23/18 15:15 03/23/18 15:17 DC 03/23/18 15:46 Morphine Sulfate (Morphine Sulfate) 4 mg 1X ONCE IV 03/23/18 18:45 03/23/18 18:46 DC 03/23/18 18:50 Morphine Sulfate (Morphine Sulfate) 4 mg PRN Q2HR PRN IV PAIN 03/23/18 18:45 03/24/18 18:44 03/23/18 20:48 Haloperidol Lactate (Haldol Inj) 2.5 mg 1X ONCE IVP 03/23/18 18:45 03/23/18 18:51 DC 03/23/18 19:29 Losartan Potassium (Cozaar) 50 mg DAILY PO 03/23/18 21:00 03/23/18 21:14 Labetalol HCl (Normodyne Iv Push) 20 mg PRN Q4HRS PRN IVP HYPERTENSION, SEE COMMENTS 03/23/18 20:30 03/23/18 21:13 Insulin Glargine (Lantus) 20 units 1X ONCE SQ 03/23/18 20:30 03/23/18 20:36 DC 03/23/18 20:56 Sodium Chloride 1,000 ml @ 75 mls/hr [id number] IV 03/23/18 20:45 03/23/18 20:51 Imaging: Imaging: Per HPI, reviewed in [facility]. PE: GEN: NAD HEENT: Atraumatic, PERRL LUNGS: CTAB HEART: RRR ABD: NABS, S/ND/NT EXTREMITY: No edema SKIN: No rashes, no jaundice NEURO/PSYCH: A & O 3 A/P: A/P: N/v -recurrent, most recent episode began after eating chicken adrianne on 03/21 -CT unrevealing Fatty liver CRC screen, h/o adenomatous polyp - UTD Chronic back pain, DM, HTN, LUKAS +cannabinoids -- ?infectious, possibly complicated w/ h/o DM/?gastroparesis - also note accelerated HTN (better) Okay to ADAT, DC per primary - she wants to go home. Follow-up in the office for recurrent symptoms - consider GES, EGD, GB studies. MAGALY HENRY Mar 24, 2018 08:39
[2018-03-24] MEDS ORDERED: LOSARTAN POTASSIUM 50 MG TABLET. PO SCH (09:00)
[2018-03-24] MEDS: IV NORMAL SALINE 1000ML BAG 1,000 ML IV SCH (10:05)
[2018-03-24 11:00] VITALS: BP 149/78
--- NOTE | 2018-03-24 12:23 | PDOC1 ---
History and Physical Date of Admission Date of Admission DATE: 03/24/18 TIME: 12:20 Identification/Chief Complaint Chief Complaint abd pain, nausea, History of Present Illness History of Present Illness Iraida is a 53 year old F who presents with generalized abdominal pain and n/v for the last 2 days. She was seen here two days ago for the same. She had labs and fluids, felt better and was dx home with viral enteritis. She denies having diarrhea today. She denies fever or chills. Past Medical History Cardiovascular: HTN, Hyperlipidemia Pulmonary: No pertinent hx, Asthma CENTRAL NERVOUS SYSTEM: Periperal neuropathy GI: No pertinent hx Heme/Onc: No pertinent hx Hepatobiliary: No pertinent hx Psych: Anxiety, Depression Musculoskeletal: Osteoarthritis Rheumatologic: No pertinent hx Infectious disease: No pertinent hx Renal/: No pertinent hx Endocrine: Diabetes Past Surgical History Past Surgical History: Breast Biopsy Family History Family History: No Significant Social History Smoke: No ALCOHOL: other (used to drink, quit) Drugs: Marijuana Current Problem List Problem List Problems Medical Problems: (1) Intractable abdominal pain Status: Acute Current Medications Current Medications Current Medications Losartan Potassium (Cozaar) 50 mg DAILY PO ; Start 03/24/18 at 09:00; Stop 03/24 at 09:00; Status DC Amlodipine Besylate (Norvasc) 10 mg 1X ONCE PO Last administered on 03/23/18at 15:15; Start 03/23/18 at 14:00; Stop 03/23/18 at 14:16; Status DC Ondansetron HCl (Zofran) 4 mg 1X ONCE IV Last administered on 03/23/18at 14:24 ; Start 03/23/18 at 14:00; Stop 03/23/18 at 14:16; Status DC Sodium Chloride 1,000 ml @ 1,000 mls/hr 1X ONCE IV Last administered on at 14:23; Start 03/23/18 at 14:00; Stop 03/23/18 at 14:59; Status DC Fentanyl Citrate (Fentanyl 2ml Vial) 50 mcg 1X ONCE IV Last administered on at 15:46; Start 03/23/18 at 15:15; Stop 03/23/18 at 15:17; Status DC Morphine Sulfate (Morphine Sulfate) 4 mg 1X ONCE IV Last administered on at 18:50; Start 03/23/18 at 18:45; Stop 03/23/18 at 18:46; Status DC Ondansetron HCl (Zofran) 4 mg PRN Q8HRS PRN IV NAUSEA/VOMITING; Start 03/23/18 at 18:45; Stop 03/24/18 at 18:44 Morphine Sulfate (Morphine Sulfate) 4 mg PRN Q2HR PRN IV PAIN Last administered on 03/23/18at 20:48; Start 03/23/18 at 18:45; Stop 03/24/18 at 18:44 Haloperidol Lactate (Haldol Inj) 2.5 mg 1X ONCE IVP Last administered on at 19:29; Start 03/23/18 at 18:45; Stop 03/23/18 at 18:51; Status DC Losartan Potassium (Cozaar) 50 mg DAILY PO Last administered on 03/24/18at 08:32 ; Start 03/23/18 at 21:00 Albuterol Sulfate (Ventolin Neb Soln) 2.5 mg PRN Q4HRS PRN NEB SHORTNESS OF BREATH; Start 03/23/18 at 20:30 Labetalol HCl (Normodyne Iv Push) 20 mg PRN Q4HRS PRN IVP HYPERTENSION, SEE COMMENTS Last administered on 03/23/18at 21:13; Start 03/23/18 at 20:30 Diphenhydramine HCl (Benadryl) 25 mg PRN Q6HRS PRN PO ITCHING; Start 03/23/18 at 20:30 Insulin Glargine (Lantus) 20 units 1X ONCE SQ Last administered on 03/23/18at 20:56; Start 03/23/18 at 20:30; Stop 03/23/18 at 20:36; Status DC Insulin Human Lispro (HumaLOG) 0-5 UNITS TIDWMEALS SQ Last administered on 03/24at 08:36; Start 03/24/18 at 08:00 Dextrose (Dextrose 50%-Water Syringe) 12.5 gm PRN Q15MIN PRN IV SEE COMMENTS; Start 03/23/18 at 20:30 Sodium Chloride 1,000 ml @ 75 mls/hr [id number] IV Last administered on at 20:51; Start 03/23/18 at 20:45 Influenza Virus Vaccine (Afluria Trivalent [id number] Syringe) 0.5 ml ONCE ONCE VAX IM ; Start 03/24/18 at 09:00; Stop 03/24/18 at 09:01; Status DC Active Scripts Active Zofran Odt (Ondansetron) 4 Mg Tab.rapdis 1 Tab SL Q8HRS Bactrim Ds Tablet (Sulfamethoxazole/Trimethoprim) 1 Each Tablet 1 Tab PO BID Proair Hfa Inhaler (Albuterol Sulfate) 8.5 Gm Hfa.aer.ad 1 Puff INH PRN Q6HRS PRN Zithromax (Azithromycin) 250 Mg Tablet 1 Pkg PO UD Hydrocodone-Apap 7.5-325 (Hydrocodone Bit/Acetaminophen) 1 Each Tablet 1 Tab PO PRN Q6HRS PRN Zofran Odt (Ondansetron) 4 Mg Tab.rapdis 1 Tab SL Q8HRS PRN [place] 5-325 Tablet (Acetaminophen/Hydrocodone Bitart) 1 Each Tablet 1-2 Tab PO Q4-6HRS Take as need for pain. Do not take prior to driving or operating heavy machinery due to risk of drowsiness. Reported Levemir (Insulin Detemir) 100 Unit/1 Ml Vial 65 Unit SQ HS Losartan Potassium 50 Mg Tablet 50 Mg PO DAILY Norvasc (Amlodipine Besylate) 10 Mg Tablet 10 Mg PO DAILY Gabapentin 300 Mg Capsule 1 Cap PO TID Metformin Hcl 1,000 Mg Tablet 1,000 Mg PO [id number] Latanoprost 2.5 Ml Drops 1 Drop EACHEYE QHS Novolog Flexpen (Insulin Aspart) 100 Unit/1 Ml Insuln.pen 7 Unit SQ [id number] Proair Hfa Inhaler (Albuterol Sulfate) 8.5 Gm Hfa.aer.ad 2 Puff IH PRN Q4-6HRS Venlafaxine Hcl Er (Venlafaxine Hcl) 150 Mg Cap.er.24h 1 Cap PO DAILY Allergies Allergies: Coded Allergies: lisinopril (Verified Allergy, Severe, Swelling, 05/17/16) angioedema ibuprofen (Verified Adverse Reaction, Intermediate, Nausea and Vomiting, ) ROS General: YES: Chills PSYCHOLOGICAL ROS: YES: Sleep disturbances; No: Anxiety, Behavioral Disorder, Concentration difficultie, Decreased libido , Depression, Disorientation, Hallucinations, Hostility, Irritablity, Memory difficulties, Mood Swings, Obsessive thoughts, Physical abuse, Sexual abuse, Suicidal ideation, Other Eyes: No Blurry vision, No Decreased vision, No Double vision, No Dry eyes, No Excessive tearing, No Eye Pain, No Itchy Eyes, No Loss of vision, No Photophobia , No [place]omata, No Uses contacts, No Uses glasses, No Other HEENT: No: Heacaches, Visual Changes, Hearing change, Nasal congestion, Nasal discharge, Oral lesions, Sinus pain, Sore Throat, Epistaxis, Sneezing, Snoring, Tinnitus, Vertigo, Vocal changes, Other Respiratory: No: Cough, Hemoptysis, Orthopnea, Pleuritic Pain, Shortness of breath, SOB with excertion, Sputum Changes, Stridor, Tachypnea, Wheezing, Other Cardiovascular: No Chest Pain, No Palpitations, No Orthopnea, No Paroxysmal Noc. Dyspnea, No Edema, No Lt Headedness, No Other Gastrointestinal: Yes Nausea, Yes Vomiting, Yes Abdominal Pain Genitourinary: No Dysuria, No Frequency, No Incontinence, No Hematuria, No Retention, No Discharge, No Urgency, No Pain, No Flank Pain, No Other, No , No , No , No , No , No , No Musculoskeletal: No Gait Disturbance, No Joint Pain, No Joint Stiffness, No Joint Swelling, No Muscle Pain, No Muscular Weakness, No Pain In:, No Swelling In:, No Other Neurological: No Behavorial Changes, No Bowel/Bladder ControlChng, No Confusion , No Dizziness, No Gait Disturbance, No Headaches, No Impaired Coord/balance, No Memory Loss, No Numbness/Tingling, No Seizures, No Speech Problems, No Tremors, No Visual Changes, No Weakness, No Other Skin: No Dry Skin, No Eczema, No Hair Changes, No Lumps, No Mole Changes, No Mottling, No Nail Changes, No Pruritus, No Rash, No Skin Lesion Changes, No Other, No Acne Physical Exam General: Alert, Cooperative, No acute distress HEENT: PERRLA, EOMI Abdomen: Normal bowel sounds, Soft Extremities: No edema Skin: No significant lesion Neuro: Normal tone, Sensation intact Psych/Mental Status: Mood NL Vitals Vitals Vital Signs Date Time Temp Pulse Resp B/P (MAP) Pulse Ox O2 Delivery O2 Flow Rate FiO2 03/24/18 11:00 98.6 84 18 149/78 (101) 99 Room Air 98.6 Labs Labs Laboratory Tests Test 03/23/18 14:35 03/23/18 14:50 03/23/18 19:47 03/24/18 05:40 White Blood Count 12.1 x10^3/uL (4.0-11.0) 9.9 x10^3/uL (4.0-11.0) Red Blood Count 4.07 x10^6/uL (3.50-5.40) 3.72 x10^6/uL (3.50-5.40) Hemoglobin 12.7 g/dL (12.0-15.5) 11.5 g/dL (12.0-15.5) Hematocrit 37.5 % (36.0-47.0) 34.4 % (36.0-47.0) Mean Corpuscular Volume 92 fL (79-100) 92 fL (79-100) Mean Corpuscular Hemoglobin 31 pg (25-35) 31 pg (25-35) Mean Corpuscular Hemoglobin Concent 34 g/dL (31-37) 34 g/dL (31-37) Red Cell Distribution Width 14.8 % (11.5-14.5) 14.7 % (11.5-14.5) Platelet Count 298 x10^3/uL (140-400) 268 x10^3/uL (140-400) Neutrophils (%) (Auto) 80 % (31-73) 59 % (31-73) Lymphocytes (%) (Auto) 16 % (24-48) 32 % (24-48) Monocytes (%) (Auto) 4 % (0-9) 9 % (0-9) Eosinophils (%) (Auto) 1 % (0-3) 0 % (0-3) Basophils (%) (Auto) 1 % (0-3) 0 % (0-3) Neutrophils # (Auto) 9.7 x10^3uL (1.8-7.7) 5.8 x10^3uL (1.8-7.7) Lymphocytes # (Auto) 1.9 x10^3/uL (1.0-4.8) 3.1 x10^3/uL (1.0-4.8) Monocytes # (Auto) 0.4 x10^3/uL (0.0-1.1) 0.9 x10^3/uL (0.0-1.1) Eosinophils # (Auto) 0.1 x10^3/uL (0.0-0.7) 0.0 x10^3/uL (0.0-0.7) Basophils # (Auto) 0.1 x10^3/uL (0.0-0.2) 0.0 x10^3/uL (0.0-0.2) Sodium Level 146 mmol/L (136-145) 144 mmol/L (136-145) Potassium Level 3.6 mmol/L (3.5-5.1) 3.7 mmol/L (3.5-5.1) Chloride Level 105 mmol/L (98-107) 106 mmol/L (98-107) Carbon Dioxide Level 29 mmol/L (21-32) 27 mmol/L (21-32) Anion Gap 12 (6-14) 11 (6-14) Blood Urea Nitrogen 27 mg/dL (7-20) 22 mg/dL (7-20) Creatinine 1.1 mg/dL (0.6-1.0) 1.1 mg/dL (0.6-1.0) Estimated GFR (Cockcroft-Gault) 62.4 62.4 BUN/Creatinine Ratio 25 (6-20) 20 (6-20) Glucose Level 156 mg/dL (70-99) 155 mg/dL (70-99) Calcium Level 11.2 mg/dL (8.5-10.1) 10.0 mg/dL (8.5-10.1) Total Bilirubin 0.3 mg/dL (0.2-1.0) 0.3 mg/dL (0.2-1.0) Aspartate Amino Transf (AST/SGOT) 29 U/L (15-37) 22 U/L (15-37) Alanine Aminotransferase (ALT/SGPT) 37 U/L (14-59) 30 U/L (14-59) Alkaline Phosphatase 98 U/L (46-116) 79 U/L (46-116) Total Protein 9.9 g/dL (6.4-8.2) 8.0 g/dL (6.4-8.2) Albumin 4.4 g/dL (3.4-5.0) 3.4 g/dL (3.4-5.0) Albumin/Globulin Ratio 0.8 (1.0-1.7) 0.7 (1.0-1.7) Lipase 110 U/L (73-393) Urine Collection Type Unknown Urine Color Yellow Urine Clarity Clear Urine pH 5.0 Urine Specific [place] >=1.030 Urine Protein 100 mg/dL (NEG-TRACE) Urine Glucose (UA) >=1000 mg/dL (NEG) Urine Ketones (Stick) Negative mg/dL (NEG) Urine Blood Trace (NEG) Urine Nitrite Negative (NEG) Urine Bilirubin Negative (NEG) Urine Urobilinogen Dipstick 0.2 mg/dL (0.2 mg/dL) Urine Leukocyte Esterase Negative (NEG) Urine RBC 1-2 /HPF (0-2) Urine WBC 1-4 /HPF (0-4) Urine Squamous Epithelial Cells Mod /LPF Urine Bacteria Few /HPF (0-FEW) Urine Mucus Slight /LPF Urine Yeast Present /HPF Glucose (Fingerstick) 152 mg/dL (70-99) Test 03/24/18 08:19 03/24/18 11:30 Glucose (Fingerstick) 157 mg/dL (70-99) 244 mg/dL (70-99) Laboratory Tests Test 03/23/18 14:35 03/23/18 14:50 03/23/18 19:47 03/24/18 05:40 White Blood Count 12.1 x10^3/uL (4.0-11.0) 9.9 x10^3/uL (4.0-11.0) Red Blood Count 4.07 x10^6/uL (3.50-5.40) 3.72 x10^6/uL (3.50-5.40) Hemoglobin 12.7 g/dL (12.0-15.5) 11.5 g/dL (12.0-15.5) Hematocrit 37.5 % (36.0-47.0) 34.4 % (36.0-47.0) Mean Corpuscular Volume 92 fL (79-100) 92 fL (79-100) Mean Corpuscular Hemoglobin 31 pg (25-35) 31 pg (25-35) Mean Corpuscular Hemoglobin Concent 34 g/dL (31-37) 34 g/dL (31-37) Red Cell Distribution Width 14.8 % (11.5-14.5) 14.7 % (11.5-14.5) Platelet Count 298 x10^3/uL (140-400) 268 x10^3/uL (140-400) Neutrophils (%) (Auto) 80 % (31-73) 59 % (31-73) Lymphocytes (%) (Auto) 16 % (24-48) 32 % (24-48) Monocytes (%) (Auto) 4 % (0-9) 9 % (0-9) Eosinophils (%) (Auto) 1 % (0-3) 0 % (0-3) Basophils (%) (Auto) 1 % (0-3) 0 % (0-3) Neutrophils # (Auto) 9.7 x10^3uL (1.8-7.7) 5.8 x10^3uL (1.8-7.7) Lymphocytes # (Auto) 1.9 x10^3/uL (1.0-4.8) 3.1 x10^3/uL (1.0-4.8) Monocytes # (Auto) 0.4 x10^3/uL (0.0-1.1) 0.9 x10^3/uL (0.0-1.1) Eosinophils # (Auto) 0.1 x10^3/uL (0.0-0.7) 0.0 x10^3/uL (0.0-0.7) Basophils # (Auto) 0.1 x10^3/uL (0.0-0.2) 0.0 x10^3/uL (0.0-0.2) Sodium Level 146 mmol/L (136-145) 144 mmol/L (136-145) Potassium Level 3.6 mmol/L (3.5-5.1) 3.7 mmol/L (3.5-5.1) Chloride Level 105 mmol/L (98-107) 106 mmol/L (98-107) Carbon Dioxide Level 29 mmol/L (21-32) 27 mmol/L (21-32) Anion Gap 12 (6-14) 11 (6-14) Blood Urea Nitrogen 27 mg/dL (7-20) 22 mg/dL (7-20) Creatinine 1.1 mg/dL (0.6-1.0) 1.1 mg/dL (0.6-1.0) Estimated GFR (Cockcroft-Gault) 62.4 62.4 BUN/Creatinine Ratio 25 (6-20) 20 (6-20) Glucose Level 156 mg/dL (70-99) 155 mg/dL (70-99) Calcium Level 11.2 mg/dL (8.5-10.1) 10.0 mg/dL (8.5-10.1) Total Bilirubin 0.3 mg/dL (0.2-1.0) 0.3 mg/dL (0.2-1.0) Aspartate Amino Transf (AST/SGOT) 29 U/L (15-37) 22 U/L (15-37) Alanine Aminotransferase (ALT/SGPT) 37 U/L (14-59) 30 U/L (14-59) Alkaline Phosphatase 98 U/L (46-116) 79 U/L (46-116) Total Protein 9.9 g/dL (6.4-8.2) 8.0 g/dL (6.4-8.2) Albumin 4.4 g/dL (3.4-5.0) 3.4 g/dL (3.4-5.0) Albumin/Globulin Ratio 0.8 (1.0-1.7) 0.7 (1.0-1.7) Lipase 110 U/L (73-393) Urine Collection Type Unknown Urine Color Yellow Urine Clarity Clear Urine pH 5.0 Urine Specific [place] >=1.030 Urine Protein 100 mg/dL (NEG-TRACE) Urine Glucose (UA) >=1000 mg/dL (NEG) Urine Ketones (Stick) Negative mg/dL (NEG) Urine Blood Trace (NEG) Urine Nitrite Negative (NEG) Urine Bilirubin Negative (NEG) Urine Urobilinogen Dipstick 0.2 mg/dL (0.2 mg/dL) Urine Leukocyte Esterase Negative (NEG) Urine RBC 1-2 /HPF (0-2) Urine WBC 1-4 /HPF (0-4) Urine Squamous Epithelial Cells Mod /LPF Urine Bacteria Few /HPF (0-FEW) Urine Mucus Slight /LPF Urine Yeast Present /HPF Glucose (Fingerstick) 152 mg/dL (70-99) Test 03/24/18 08:19 03/24/18 11:30 Glucose (Fingerstick) 157 mg/dL (70-99) 244 mg/dL (70-99) VTE Prophylaxis Ordered VTE Prophylaxis Devices: No VTE Pharmacological Prophylaxi: Yes Assessment/Plan Assessment/Plan acute viral enteritis acute abd bee Dm2 obesity BMI 34 anxiety d/o chronic neuropathy pain SUKHWINDER DONATO MD Mar 24, 2018 12:23
== END 2018-03-24 13:45 | disposition home or self-care (01) | DRG 392 ==
LOC: ER 12:59 → 4 NORTH 18:30
PROVIDERS: ADMIT Internal Medicine; ATTEND Internal Medicine
DX: A08.4 Viral intestinal infection, unspecified (principal); E11.42 Type 2 diabetes mellitus with diabetic polyneuropathy; E66.9 Obesity, unspecified; E78.5 Hyperlipidemia, unspecified; F32.9 Major depressive disorder, single episode, unspecified; E11.65 Type 2 diabetes mellitus with hyperglycemia; Z79.4 Long term (current) use of insulin; F41.9 Anxiety disorder, unspecified; M19.90 Unspecified osteoarthritis, unspecified site; G89.29 Other chronic pain; M54.9 Dorsalgia, unspecified; I10 Essential (primary) hypertension; K76.0 Fatty (change of) liver, not elsewhere classified; Z68.34 Body mass index [BMI] 34.0-34.9, adult; Z90.710 Acquired absence of both cervix and uterus; Z88.8 Allergy status to other drugs, medicaments and biological substances; Z79.899 Other long term (current) drug therapy
CPT/HCPCS: 36415; 80053; 81001; 82962; 83690; 85025; 90471; 90756; 93005; 94760; 96361; 96374; 96375; J1630; J1815; J2270; J2405; J3010; J3490; J7030; 99285-25; Q2035

== ENCOUNTER → 2018-10-25 | Outpatient (CLI) | payer OTHER, MEDICAID ==
[~2018-10-25] MED LIST changes: +ALBU2.5V8 IH; +ALBU2.5V8 INH; -GABA-586 PO; +GABA300C18 PO; -HYDR-2762 PO; +HYDR-2765 PO; +HYDR-3164 PO; -HYDR-971 PO; +INSU100V13 SQ; +LOSA-73 PO; -LOSA50TA7 PO; -PROAIR HFA8.5 GM IH; -PROAIR HFA8.5 GM INH
[2018-10-25 11:15] LABS: BILIRUBIN,URINE NEGATIVE (NEG); CLARITY,URINE CLEAR; COLOR,URINE YELLOW; NITRITE,URINE NEGATIVE (NEG); PROTEIN,URINE 100 mg/dL (NEG-TRACE); UROBILINOGEN,URINE 0.2 mg/dL (0.2 mg/dL)
[2018-10-25 11:21] LABS: BACTERIA,URINE FEW /HPF (0-FEW); RBC,URINE OCC /HPF (0-2); SQUAMOUS EPITHELIAL CELL,UR MANY /LPF
[2018-10-25 11:35] LABS: ALBUMIN/GLOBULIN RATIO 0.9 (1.0-1.7); CALCIUM 9.8 mg/dL (8.5-10.1); CREATININE 1.4 mg/dL (0.6-1.0); GFR 47.2; MAGNESIUM 2.1 mg/dL (1.8-2.4); POTASSIUM 3.4 mmol/L (3.5-5.1); TOTAL BILIRUBIN 0.3 mg/dL (0.2-1.0); TOTAL PROTEIN 8.5 g/dL (6.4-8.2)
[2018-10-25 11:36] LABS: CHOLESTEROL/HDL RATIO 2.3
--- NOTE | 2018-10-25 13:02 | RAD ---
Chest radiograph 10/25/2018 12:00 AM INDICATION: URI. Rattling at the right lung. COMPARISON: March 21, 2018 TECHNIQUE: Frontal and lateral views of the chest are provided. FINDINGS: The cardiomediastinal silhouette is within normal limits. There are no pleural effusions. There is no pulmonary vascular congestion. There is no pneumothorax. There is tree-in-bud nodularity in the right midlung which may represent a bronchiolitis of infectious/inflammatory etiology. No significant osseous abnormality is identified. IMPRESSION: There is tree-in-bud nodularity in the right midlung which may represent a bronchiolitis of infectious/inflammatory etiology. Electronically signed by: Vanessa Davidson MD (10/25/2018 12:59 PM) [id number]
[2018-10-25 19:13] LABS: THYROXINE 5.8 ug/dL (4.5-12.0)
[2018-10-25 23:08] LABS: HEMOGLOBIN A1C 9.9 % (4.8-5.6)
== END | disposition home or self-care (01) ==
LOC: RAD 10:05
PROVIDERS: ATTEND Internal Medicine Cardiovascular Disease
DX: J06.9 Acute upper respiratory infection, unspecified (principal); R91.1 Solitary pulmonary nodule; I10 Essential (primary) hypertension; E11.8 Type 2 diabetes mellitus with unspecified complications; E78.5 Hyperlipidemia, unspecified; J44.9 Chronic obstructive pulmonary disease, unspecified
CPT/HCPCS: 36415; 71046; 80053; 80061; 81001; 83036; 83695; 83698; 83735; 84436; 84443; 84479; 86141

== ENCOUNTER 2019-01-04 10:02 | Emergency (ER) | payer OTHER, MEDICAID ==
[~2019-01-04] VITALS: Ht 175.3 cm; Wt 104.3 kg
[~2019-01-04 10:02] MED LIST changes: -PANT40TA5 PO; +PANT40TA77 PO
[2019-01-04 10:34] LABS: BASO % 1 % (0-3); EOS # 0.1 x10^3/uL (0.0-0.7); EOS % 1 % (0-3); HEMATOCRIT 37.4 % (36.0-47.0); HEMOGLOBIN 12.4 g/dL (12.0-15.5); LYMPH # 1.3 x10^3/uL (1.0-4.8); LYMPH % 23 % (24-48); MEAN CORPUSCULAR HEMOGLOBIN 31 pg (25-35); MEAN CORPUSCULAR HGB CONC 33 g/dL (31-37); MEAN CORPUSCULAR VOLUME 93 fL (79-100); MONO # 0.3 x10^3/uL (0.0-1.1); MONO % 6 % (0-9); NEUT # 4.2 x10^3/uL (1.8-7.7); NEUT % 70 % (31-73); PLATELET COUNT 305 x10^3/uL (140-400); RED BLOOD COUNT 4.04 x10^6/uL (3.50-5.40); RED CELL DISTRIBUTION WIDTH 14.1 % (11.5-14.5)
[2019-01-04 10:41] LABS: CALCIUM 10.2 mg/dL (8.5-10.1); CREATININE 1.4 mg/dL (0.6-1.0); GFR 47.2; POTASSIUM 3.6 mmol/L (3.5-5.1)
[2019-01-04 10:46] LABS: ALBUMIN/GLOBULIN RATIO 0.8 (1.0-1.7); TOTAL BILIRUBIN 0.2 mg/dL (0.2-1.0); TOTAL PROTEIN 8.8 g/dL (6.4-8.2)
[2019-01-04] MEDS: IV NORMAL SALINE 1000ML BAG 1,000 ML IV ONE (10:48)
--- NOTE | 2019-01-04 10:48 | PHYS DOC ---
Past Medical History Past Medical History: Diabetes-Type II, Hypertension Additional Past Medical Histor: neuropathy, CHRONIC BACK PAIN Past Surgical History: Hysterectomy, Other Additional Past Surgical Histo: CARPAL TUNNEL, TUMOR BIOPSY IN LEFT BREAST, eye surgery Alcohol Use: None Drug Use: Marijuana Adult General Chief Complaint Chief Complaint: ABDOMINAL PAIN HPI HPI Patient is a 53 year old female with a history of diabetes and hypertension presents to the ED complaining of nausea and vomiting 2 days. Patient has a history of episodes of nausea and vomiting. Patient states 12 hours ago she took her insulin but only had a little bit of toast and tea and thinks that is why she is vomiting. Patient arrived via EMS and her blood sugar was 150. Patient complains of diffuse abdominal tenderness. Describes the pain as sharp. Rates the pain as 5 out of 10. Associated symptoms include 2 episodes of diarrhea. Patient given Zofran by EMS. Denies fever, chills, chest pain, shortness of breath, back pain, dysuria, hematuria, vaginal discharge/bleeding, headache or dizziness. Review of Systems Review of Systems Constitutional: Denies fever or chills [] Eyes: Denies change in visual acuity, redness, or eye pain [] HENT: Denies nasal congestion or sore throat [] Respiratory: Denies cough or shortness of breath [] Cardiovascular: No additional information not addressed in HPI [] GI: Complains of abdominal pain, nausea, vomiting and diarrhea. Denies bloody stools. : Denies dysuria or hematuria [] Musculoskeletal: Denies back pain or joint pain [] Integument: Denies rash or skin lesions [] Neurologic: Denies headache, focal weakness or sensory changes [] All other systems were reviewed and found to be within normal limits, except as documented in this note. Current Medications Current Medications Current Medications Medications (Trade) Dose Ordered Sig/Maribel Start Time Stop Time Status Last Admin Dose Admin Fentanyl Citrate (Fentanyl 2ml Vial) 50 mcg 1X ONCE 01/04/19 12:30 01/04/19 12:31 DC 01/04/19 12:33 50 MCG Iohexol (Omnipaque 300 Mg/ml) 60 ml 1X ONCE 01/04/19 11:30 01/04/19 11:31 DC Sodium Chloride 1,000 ml @ 1,000 mls/hr 1X ONCE 01/04/19 11:00 01/04/19 11:59 DC 01/04/19 10:48 1,000 MLS/HR Allergies Allergies Allergies Coded Allergies Type Severity Reaction Last Updated Verified lisinopril Allergy Severe Swelling 05/17/16 Yes ibuprofen Adverse Reaction Intermediate Nausea and Vomiting 12/22/15 Yes Physical Exam Physical Exam Constitutional: Well developed, well nourished, no acute distress, non-toxic appearance. [] HENT: Normocephalic, atraumatic Eyes: PERRLA, EOMI, conjunctiva normal, no discharge. [] Neck: Normal range of motion, no tenderness, supple, no stridor. [] Cardiovascular:Heart rate regular rhythm, no murmur [] Lungs & Thorax: Bilateral breath sounds clear to auscultation [] Abdomen: Bowel sounds normal, soft, mild diffuse abdominal tenderness, no masses, no pulsatile masses. [] Skin: Warm, dry, no erythema, no rash. [] Back: No tenderness, no CVA tenderness. [] Extremities: No tenderness, no cyanosis, no clubbing, ROM intact, no edema. [] Neurologic: Alert and oriented X 3, normal motor function, normal sensory function, no focal deficits noted. [] Psychologic: Affect normal, judgement normal, mood normal. [] Current Patient Data Vital Signs Vital Signs Date Time Temp Pulse Resp B/P (MAP) Pulse Ox O2 Delivery O2 Flow Rate FiO2 01/04/19 13:58 92 18 158/79 (105) 94 Room Air 01/04/19 10:02 97.8 97.8 Lab Values Laboratory Tests Test 01/04/19 10:25 White Blood Count 6.0 x10^3/uL (4.0-11.0) Red Blood Count 4.04 x10^6/uL (3.50-5.40) Hemoglobin 12.4 g/dL (12.0-15.5) Hematocrit 37.4 % (36.0-47.0) Mean Corpuscular Volume 93 fL (79-100) Mean Corpuscular Hemoglobin 31 pg (25-35) Mean Corpuscular Hemoglobin Concent 33 g/dL (31-37) Red Cell Distribution Width 14.1 % (11.5-14.5) Platelet Count 305 x10^3/uL (140-400) Neutrophils (%) (Auto) 70 % (31-73) Lymphocytes (%) (Auto) 23 % (24-48) L Monocytes (%) (Auto) 6 % (0-9) Eosinophils (%) (Auto) 1 % (0-3) Basophils (%) (Auto) 1 % (0-3) Neutrophils # (Auto) 4.2 x10^3/uL (1.8-7.7) Lymphocytes # (Auto) 1.3 x10^3/uL (1.0-4.8) Monocytes # (Auto) 0.3 x10^3/uL (0.0-1.1) Eosinophils # (Auto) 0.1 x10^3/uL (0.0-0.7) Basophils # (Auto) 0.0 x10^3/uL (0.0-0.2) Sodium Level 140 mmol/L (136-145) Potassium Level 3.6 mmol/L (3.5-5.1) Chloride Level 101 mmol/L (98-107) Carbon Dioxide Level 31 mmol/L (21-32) Anion Gap 8 (6-14) Blood Urea Nitrogen 41 mg/dL (7-20) H Creatinine 1.4 mg/dL (0.6-1.0) H Estimated GFR (Cockcroft-Gault) 47.2 BUN/Creatinine Ratio 29 (6-20) H Glucose Level 142 mg/dL (70-99) H Calcium Level 10.2 mg/dL (8.5-10.1) H Total Bilirubin 0.2 mg/dL (0.2-1.0) Aspartate Amino Transferase (AST) 23 U/L (15-37) Alanine Aminotransferase (ALT) 35 U/L (14-59) Alkaline Phosphatase 87 U/L (46-116) Total Protein 8.8 g/dL (6.4-8.2) H Albumin 4.0 g/dL (3.4-5.0) Albumin/Globulin Ratio 0.8 (1.0-1.7) L Lipase 227 U/L (73-393) Laboratory Tests 01/04/19 10:25 Laboratory Tests 01/04/19 10:25 EKG EKG [] Radiology/Procedures Radiology/Procedures []PROCEDURE: CT ABD PELV W/ IV CONTRST ONLY PQRS Compliance statement: One or more of the following individualized dose reduction techniques were utilized for this examination: 1. Automated exposure control. 2. Adjustment of the mA and/or kV according to patient size. 3. Use of iterative reconstruction technique. Indication:Abdominal pain. TECHNIQUE: CT abdomen and pelvis with IV contrast with multiplanar reformats. COMPARISON: 03/21/2018 FINDINGS: Heart is normal in size. No pericardial or pleural effusion. Calcified granuloma in the right lung base. Liver, spleen, gallbladder, pancreas, adrenals and right kidney within normal limits. Punctate nonobstructing left renal stone. Stable 1 cm low attenuating lesion in the left kidney most likely simple cyst. No enlarged retroperitoneal or pelvic adenopathy. Trace amount of free pelvic fluid. No ascites. No bowel obstruction. Normal appendix. Mild atherosclerotic plaque in the abdominal aorta. Uterus is surgically absent. Urinary bladder demonstrates no radiopaque stone. No pneumoperitoneum. No suspicious bony lesion. IMPRESSION: 1. Punctate nonobstructing left renal stone. 2. No bowel obstruction. Normal appendix. Course & Med Decision Making Course & Med Decision Making Pertinent Labs and Imaging studies reviewed. (See chart for details) []Discussed lab and imaging findings with patient. Patient's pain resolved in the ED. On reexamination, abdomen soft nontender nondistended. No peritoneal signs. Tolerating by mouth. We'll treat outpatient with tramadol and Zofran. Patient requesting prescription refill for her blood pressure medication that elmer takes daily. Refill prescribed. Discussed symptomatic treatment and follow-up with PCP. Provided contact information/education. Discussed reasons to return to the ED. Patient understands and agrees with plan. Family at bedside. Dragon Disclaimer Dragon Disclaimer This electronic medical record was generated, in whole or in part, using a voice recognition dictation system. Departure Departure Impression: Primary Impression: Nausea & vomiting Additional Impression: Kidney stone Disposition: HOME, SELF-CARE Condition: IMPROVED Referrals: HERON EASON MD (PCP) Patient Instructions: Diet for Kidney Stones, Nausea and Vomiting Scripts Losartan/Hydrochlorothiazide (LOSARTAN-HCTZ 100-25 MG TAB) 1 Each Tablet 1 TAB PO DAILY, #14 TAB 0 Refills Prov: RADHA EDUARDO 01/04/19 Tramadol Hcl (TRAMADOL HCL) 50 Mg Tablet 50 MG PO DAILY PRN for PAIN, #10 TAB 0 Refills Prov: RADHA EDUARDO 7/16/19 Ondansetron Hcl (ZOFRAN) 4 Mg Tablet 1 TAB PO Q6HRS, #20 TAB Prov: RADHA EDUARDO 01/04/19 Problem Qualifiers RADHA EDUARDO Jan 04, 2019 10:48
[2019-01-04] MEDS ORDERED: IOHEXOL 300 MG/ML 100ML VIAL. IV ONE (11:30)
--- NOTE | 2019-01-04 11:47 | RAD ---
PQRS Compliance statement: One or more of the following individualized dose reduction techniques were utilized for this examination: 1. Automated exposure control. 2. Adjustment of the mA and/or kV according to patient size. 3. Use of iterative reconstruction technique. Indication:Abdominal pain. TECHNIQUE: CT abdomen and pelvis with IV contrast with multiplanar reformats. COMPARISON: 03/21/2018 FINDINGS: Heart is normal in size. No pericardial or pleural effusion. Calcified granuloma in the right lung base. Liver, spleen, gallbladder, pancreas, adrenals and right kidney within normal limits. Punctate nonobstructing left renal stone. Stable 1 cm low attenuating lesion in the left kidney most likely simple cyst. No enlarged retroperitoneal or pelvic adenopathy. Trace amount of free pelvic fluid. No ascites. No bowel obstruction. Normal appendix. Mild atherosclerotic plaque in the abdominal aorta. Uterus is surgically absent. Urinary bladder demonstrates no radiopaque stone. No pneumoperitoneum. No suspicious bony lesion. IMPRESSION: 1. Punctate nonobstructing left renal stone. 2. No bowel obstruction. Normal appendix. Electronically signed by: Reji Hayes DO (01/04/2019 11:44 AM) [facility]
[2019-01-04] MEDS: fentaNYL PF VIAL 100 MCG/2 ML VIAL IV ONE (12:33)
[2019-01-04] MEDS ORDERED: ONDA4TAB7 PO (13:48)
[2019-01-04] MEDS ORDERED: LOSA1TAB22 PO (13:48)
[2019-01-04] MEDS ORDERED: TRAM50TA PO (13:48)
[2019-01-04 13:58] VITALS: BP 158/79
== END 2019-01-04 14:07 | disposition home or self-care (01) ==
LOC: ER 10:02
DX: N20.0 Calculus of kidney (principal); R11.2 Nausea with vomiting, unspecified; R19.7 Diarrhea, unspecified; I10 Essential (primary) hypertension; E11.40 Type 2 diabetes mellitus with diabetic neuropathy, unspecified; G89.29 Other chronic pain; Z90.710 Acquired absence of both cervix and uterus; Z88.6 Allergy status to analgesic agent; Z88.8 Allergy status to other drugs, medicaments and biological substances
CPT/HCPCS: 36415; 74177; 80053; 83690; 85025; 96361; 96374; 99285; J3010; J7030

== ENCOUNTER 2019-01-06 18:14 | Emergency (ER) | payer OTHER, MEDICAID ==
[~2019-01-06] VITALS: Ht 175.3 cm; Wt 104.3 kg
[~2019-01-06 18:14] MED LIST changes: +LOSA1TAB22 PO; +ONDA4TAB7 PO; +TRAM50TA PO
[2019-01-06 18:45] LABS: BASO % 0 % (0-3); EOS % 0 % (0-3); HEMATOCRIT 37.9 % (36.0-47.0); HEMOGLOBIN 12.9 g/dL (12.0-15.5); LYMPH # 1.2 x10^3/uL (1.0-4.8); LYMPH % 12 % (24-48); MEAN CORPUSCULAR HEMOGLOBIN 32 pg (25-35); MEAN CORPUSCULAR HGB CONC 34 g/dL (31-37); MEAN CORPUSCULAR VOLUME 93 fL (79-100); MONO # 0.2 x10^3/uL (0.0-1.1); MONO % 2 % (0-9); NEUT # 8.9 x10^3/uL (1.8-7.7); NEUT % 86 % (31-73); PLATELET COUNT 330 x10^3/uL (140-400); RED BLOOD COUNT 4.09 x10^6/uL (3.50-5.40); RED CELL DISTRIBUTION WIDTH 13.6 % (11.5-14.5); WHITE BLOOD COUNT 10.4 x10^3/uL (4.0-11.0)
[2019-01-06 18:54] LABS: CALCIUM 10.4 mg/dL (8.5-10.1); CREATININE 1.3 mg/dL (0.6-1.0); GFR 51.5; POTASSIUM 3.8 mmol/L (3.5-5.1)
[2019-01-06 18:59] LABS: BILIRUBIN,URINE NEGATIVE (NEG); CLARITY,URINE CLOUDY; COLOR,URINE YELLOW; NITRITE,URINE NEGATIVE (NEG); PH,URINE 5.5; PROTEIN,URINE 100 mg/dL (NEG-TRACE); UROBILINOGEN,URINE 0.2 mg/dL (0.2 mg/dL)
[2019-01-06 19:01] LABS: ALBUMIN 4.3 g/dL (3.4-5.0); ALBUMIN/GLOBULIN RATIO 0.9 (1.0-1.7); TOTAL BILIRUBIN 0.3 mg/dL (0.2-1.0); TOTAL PROTEIN 9.3 g/dL (6.4-8.2)
[2019-01-06 19:05] LABS: BACTERIA,URINE MODERATE /HPF (0-FEW); BARBITURATES NEG (NEG); BENZODIAZEPINES NEG (NEG); CANNABINOIDS POS (NEG); COCAINE NEG (NEG); METHADONE NEG (NEG); OPIATES NEG (NEG); PHENCYCLIDINE NEG (NEG); RBC,URINE OCC /HPF (0-2); SQUAMOUS EPITHELIAL CELL,UR MANY /LPF
[2019-01-06 19:07] LABS: AMPHETAMINE/METHAMPHETAMINE NEG (NEG)
[2019-01-06] MEDS ORDERED: ONDANSETRON PF 4 MG/2 ML VIAL. IV ONE (19:15)
[2019-01-06] MEDS ORDERED: KETOROLAC 30 MG/ML VIAL. IV ONE (19:15)
[2019-01-06] MEDS ORDERED: fentaNYL PF VIAL 100 MCG/2 ML VIAL IV ONE (19:15)
--- NOTE | 2019-01-06 19:50 | PHYS DOC ---
Past Medical History Past Medical History: Diabetes-Type II, Hypertension, Kidney Stone, Other Additional Past Medical Histor: neuropathy,CHRONIC BACK PAIN Past Surgical History: Hysterectomy, Other Additional Past Surgical Histo: CARPAL TUNNEL,TUMOR BIOPSY/L BREAST,eye surgery Alcohol Use: None Drug Use: Marijuana Adult General Chief Complaint Chief Complaint: FLANK PAIN HPI HPI Patient is a 53 year old female presented to ER today for evaluation of severe left flank pain that started today. Patient was seen here 2 days ago for the same. CT scan of her abdomen and pelvic show some stones in left kidney, she was discharged home with tramadol. Patient take her medication but did not get any relief so she came here for evaluation. She denies any fever. Review of Systems Review of Systems Constitutional: Denies fever or chills [] Eyes: Denies change in visual acuity, redness, or eye pain [] HENT: Denies nasal congestion or sore throat [] Respiratory: Denies cough or shortness of breath [] Cardiovascular: No additional information not addressed in HPI [] GI: Positive for abdominal pain, nausea, vomiting, NO bloody stools or diarrhea [] : Denies dysuria or hematuria [] Musculoskeletal: Denies back pain or joint pain [] Integument: Denies rash or skin lesions [] Neurologic: Denies headache, focal weakness or sensory changes [] Endocrine: Denies polyuria or polydipsia [] All other systems were reviewed and found to be within normal limits, except as documented in this note. Current Medications Current Medications Current Medications Medications (Trade) Dose Ordered Sig/Maribel Start Time Stop Time Status Last Admin Dose Admin Acetaminophen/ Hydrocodone Bitart (Lortab 5/325) 2 tab 1X ONCE 01/06/19 22:00 01/06/19 22:01 Fentanyl Citrate (Fentanyl 2ml Vial) 50 mcg 1X ONCE 01/06/19 19:15 01/06/19 19:16 DC 01/06/19 19:07 50 MCG Ketorolac Tromethamine (Toradol 30mg Vial) 30 mg 1X ONCE 01/06/19 19:15 01/06/19 19:16 DC 01/06/19 19:07 30 MG Ondansetron HCl (Zofran) 4 mg 1X ONCE 01/06/19 19:15 01/06/19 19:16 DC 01/06/19 19:07 4 MG Allergies Allergies Allergies Coded Allergies Type Severity Reaction Last Updated Verified lisinopril Allergy Severe Swelling 05/17/16 Yes ibuprofen Adverse Reaction Intermediate Nausea and Vomiting 12/22/15 Yes Physical Exam Physical Exam GEN: In obvious distress due to pain HENT: Normocephalic, atraumatic, bilateral external ears normal, oropharynx moist, no oral exudates, nose normal. [] Eyes: PERRLA, EOMI, conjunctiva normal, no discharge. [] Neck: Normal range of motion, no tenderness, supple, no stridor. [] Cardiovascular:Heart rate regular rhythm, no murmur [] Lungs & Thorax: Bilateral breath sounds clear to auscultation [] Abdomen: Bowel sounds normal, soft, Left CVA tenderness, no masses, no pulsatile masses. [] Skin: Warm, dry, no erythema, no rash. [] Back: No tenderness, no CVA tenderness. [] Extremities: No tenderness, no cyanosis, no clubbing, ROM intact, no edema. [] Neurologic: Alert and oriented X 3, normal motor function, normal sensory function, no focal deficits noted. [] Psychologic: Affect normal, judgement normal, mood normal. [] Current Patient Data Vital Signs Vital Signs Date Time Temp Pulse Resp B/P (MAP) Pulse Ox O2 Delivery O2 Flow Rate FiO2 01/06/19 20:47 102 22 199/88 (125) Room Air 01/06/19 20:17 2.0 01/06/19 19:37 96 01/06/19 18:14 98.5 98.5 Lab Values Laboratory Tests Test 01/06/19 17:29 01/06/19 18:50 White Blood Count 10.4 x10^3/uL (4.0-11.0) Red Blood Count 4.09 x10^6/uL (3.50-5.40) Hemoglobin 12.9 g/dL (12.0-15.5) Hematocrit 37.9 % (36.0-47.0) Mean Corpuscular Volume 93 fL (79-100) Mean Corpuscular Hemoglobin 32 pg (25-35) Mean Corpuscular Hemoglobin Concent 34 g/dL (31-37) Red Cell Distribution Width 13.6 % (11.5-14.5) Platelet Count 330 x10^3/uL (140-400) Neutrophils (%) (Auto) 86 % (31-73) H Lymphocytes (%) (Auto) 12 % (24-48) L Monocytes (%) (Auto) 2 % (0-9) Eosinophils (%) (Auto) 0 % (0-3) Basophils (%) (Auto) 0 % (0-3) Neutrophils # (Auto) 8.9 x10^3/uL (1.8-7.7) H Lymphocytes # (Auto) 1.2 x10^3/uL (1.0-4.8) Monocytes # (Auto) 0.2 x10^3/uL (0.0-1.1) Eosinophils # (Auto) 0.0 x10^3/uL (0.0-0.7) Basophils # (Auto) 0.0 x10^3/uL (0.0-0.2) Segmented Neutrophils % 81 % (35-66) H Lymphocytes % 14 % (24-48) L Monocytes % 5 % (0-10) Platelet Estimate Increased (ADEQUATE) Large Platelets Occ Anisocytosis Slight Sodium Level 141 mmol/L (136-145) Potassium Level 3.8 mmol/L (3.5-5.1) Chloride Level 99 mmol/L (98-107) Carbon Dioxide Level 27 mmol/L (21-32) Anion Gap 15 (6-14) H Blood Urea Nitrogen 32 mg/dL (7-20) H Creatinine 1.3 mg/dL (0.6-1.0) H Estimated GFR (Cockcroft-Gault) 51.5 BUN/Creatinine Ratio 25 (6-20) H Glucose Level 196 mg/dL (70-99) H Calcium Level 10.4 mg/dL (8.5-10.1) H Total Bilirubin 0.3 mg/dL (0.2-1.0) Aspartate Amino Transferase (AST) 31 U/L (15-37) Alanine Aminotransferase (ALT) 33 U/L (14-59) Alkaline Phosphatase 83 U/L (46-116) Total Protein 9.3 g/dL (6.4-8.2) H Albumin 4.3 g/dL (3.4-5.0) Albumin/Globulin Ratio 0.9 (1.0-1.7) L Lipase 112 U/L (73-393) Urine Collection Type Unknown Urine Color Yellow Urine Clarity Cloudy Urine pH 5.5 Urine Specific Dunlo >=1.030 Urine Protein 100 mg/dL (NEG-TRACE) Urine Glucose (UA) >=1000 mg/dL (NEG) Urine Ketones (Stick) 15 mg/dL (NEG) Urine Blood Trace (NEG) Urine Nitrite Negative (NEG) Urine Bilirubin Negative (NEG) Urine Urobilinogen Dipstick 0.2 mg/dL (0.2 mg/dL) Urine Leukocyte Esterase Negative (NEG) Urine RBC Occ /HPF (0-2) Urine WBC 1-4 /HPF (0-4) Urine Squamous Epithelial Cells Many /LPF Urine Bacteria Moderate /HPF (0-FEW) Urine Opiates Screen Neg (NEG) Urine Methadone Screen Neg (NEG) Urine Barbiturates Neg (NEG) Urine Phencyclidine Screen Neg (NEG) Urine Amphetamine/Methamphetamine Neg (NEG) Urine Benzodiazepines Screen Neg (NEG) Urine Cocaine Screen Neg (NEG) Urine Cannabinoids Screen Pos (NEG) Urine Ethyl Alcohol Neg (NEG) Laboratory Tests 01/06/19 17:29 Laboratory Tests 01/06/19 17:29 EKG EKG [] Radiology/Procedures Radiology/Procedures [] Course & Med Decision Making Course & Med Decision Making Pertinent Labs and Imaging studies reviewed. (See chart for details) Patient was given pain medications in the ER, felt much better, will discharge her home. Suspected her pain from her chronic back pain. Dragon Disclaimer Dragon Disclaimer This electronic medical record was generated, in whole or in part, using a voice recognition dictation system. Departure Departure Impression: Primary Impression: Acute exacerbation of chronic low back pain Disposition: 01 HOME, SELF-CARE Condition: STABLE Referrals: HERON EASON MD (PCP) FOLLOW UP WITH YOUR DOCTOR THIS WEEK. Patient Instructions: Back Pain, Adult Scripts Hydrocodone/Apap 5-325 (NORCO 5-325 TABLET) 1 Each Tablet 1 TAB PO PRN Q6HRS PRN for PAIN, #12 TAB 0 Refills Prov: TONY LACY DO 01/06/19 TONY LACY DO Jan 06, 2019 19:50
[2019-01-06 20:14] LABS: % LYMPHS 14 % (24-48); % MONOS 5 % (0-10); % SEGS 81 % (35-66); ANISOCYTOSIS SLIGHT; PLT ESTIMATE INCREASED (ADEQUATE)
[2019-01-06 21:17] VITALS: BP 212/99
[2019-01-06] MEDS ORDERED: HYDR-3164 PO (21:50)
[2019-01-06] MEDS ORDERED: HYDROcodone/APAP 5/325MG 1 TAB TABLET PO ONE (22:00)
--- NOTE | 2019-01-07 05:31 | RAD ---
Acute abdominal series to include a PA chest radiograph 01/06/2019 Clinical History: Abdominal pain. Left-sided flank pain. A PA digital radiograph of the chest was obtained. Supine and erect AP digital radiographs of the abdomen/pelvis were obtained. Comparison study is dated 10/25/2018. The cardiac silhouette is borderline enlarged. The thoracic aorta is mildly tortuous. No acute pulmonary infiltrate is seen. No pleural effusion or pneumothorax is noted. The abdominal bowel gas pattern is nonobstructive. A moderate amount of stool is seen within the colon. No free air is seen. No radiopaque calculus is noted. Calcifications are seen within the pelvis consistent with phleboliths. Degenerative changes are seen involving the thoracic and mid and lower lumbar spine along with both hips. IMPRESSION: Nonobstructive bowel gas pattern. Electronically signed by: Joseph Rey MD (01/07/2019 5:28 AM) [facility]
== END 2019-01-06 22:05 | disposition home or self-care (01) ==
LOC: ER 18:14
DX: G89.29 Other chronic pain (principal); M54.5 Low back pain; E11.40 Type 2 diabetes mellitus with diabetic neuropathy, unspecified; I10 Essential (primary) hypertension; Z87.442 Personal history of urinary calculi; Z90.710 Acquired absence of both cervix and uterus; Z88.8 Allergy status to other drugs, medicaments and biological substances
CPT/HCPCS: 36415; 74022; 80053; 80307; 81001; 83690; 85007; 85025; 87086; 96374; 96375; 99285; J1885; J2405; J3010

== ENCOUNTER 2019-01-08 03:09 | Emergency (ER) | payer OTHER, MEDICAID ==
[~2019-01-08] VITALS: Ht 177.8 cm; Wt 104.3 kg
[2019-01-08 03:11] VITALS: BP 150/75
[2019-01-08] MEDS ORDERED: HALOPERIDOL LACTATE 5 MG/ML VIAL. IM ONE (04:00)
[2019-01-08] MEDS ORDERED: CYCL5TAB PO (04:35)
[2019-01-08] MEDS ORDERED: oxyCODONE/APAP 5/325 1 TAB TABLET PO ONE (05:00)
--- NOTE | 2019-01-08 05:23 | PHYS DOC ---
Past Medical History Past Medical History: Diabetes-Type II, Hypertension, Kidney Stone, Other Additional Past Medical Histor: neuropathy,CHRONIC BACK PAIN Past Surgical History: Hysterectomy, Other Additional Past Surgical Histo: CARPAL TUNNEL,TUMOR BIOPSY/L BREAST,eye surgery Alcohol Use: None Drug Use: Marijuana Adult General Chief Complaint Chief Complaint: FLANK PAIN HPI HPI Patient is a 53 year old female brought in by ambulance with back pain. She was seen here twice earlier this week she says the pain is severe it feels like cram ping and sharp in the left lower back she thinks it is her kidney stones acting up. Of note patient a CT scan of couple days back that did show nonobstructive punctate stone in the kidney no ureteral stone urine was essentially negative she came back again yesterday she had was given pain medication by the doctor and was sent home with a diagnosis of back pain. No trauma no fever no numbness or weakness in the lower extremity's. Review of Systems Review of Systems Constitutional: Denies fever or chills [] Eyes: Denies change in visual acuity, redness, or eye pain [] HENT: Denies nasal congestion or sore throat [] Respiratory: Denies cough or shortness of breath [] Cardiovascular: No additional information not addressed in HPI [] GI: Denies abdominal pain, nausea, vomiting, bloody stools or diarrhea [] : Denies dysuria or hematuria [] Musculoskeletal: Denies back pain or joint pain [] Integument: Denies rash or skin lesions [] Neurologic: Denies headache, focal weakness or sensory changes [] Endocrine: Denies polyuria or polydipsia [] All other systems were reviewed and found to be within normal limits, except as documented in this note. Current Medications Current Medications Current Medications Medications (Trade) Dose Ordered Sig/Maribel Start Time Stop Time Status Last Admin Dose Admin Haloperidol Lactate (Haldol Inj) 2.5 mg 1X ONCE 01/08/19 04:00 01/08/19 04:01 DC 01/08/19 03:55 2.5 MG Lorazepam (Ativan Inj) 2 mg 1X ONCE 01/08/19 04:00 01/08/19 04:01 DC 01/08/19 03:54 2 MG Oxycodone/ Acetaminophen (Percocet 5/325) 2 tab 1X ONCE 01/08/19 05:00 01/08/19 05:00 DC 01/08/19 04:32 2 TAB Allergies Allergies Allergies Coded Allergies Type Severity Reaction Last Updated Verified lisinopril Allergy Severe Swelling 05/17/16 Yes ibuprofen Adverse Reaction Intermediate Nausea and Vomiting 12/22/15 Yes Physical Exam Physical Exam Constitutional: Well developed, well nourished, no acute distress, non-toxic appearance. [] HENT: Normocephalic, atraumatic, bilateral external ears normal, oropharynx moist, no oral exudates, nose normal. [] Eyes: PERRLA, EOMI, conjunctiva normal, no discharge. [] Neck: Normal range of motion, no tenderness, supple, no stridor. [] Pulmonary: Normal respiratory effort no increased work of breathing no obvious c hest wall trauma Abdomen: Bowel sounds normal, soft, no tenderness, no masses, no pulsatile masses. [] Skin: Warm, dry, no erythema, no rash. [] Back left paraspinous ttp wtih palpable spasm no midline ttp. Extremities: No tenderness, no cyanosis, no clubbing, ROM intact, no edema. [] Neurologic: Alert and oriented X 3, normal motor function, normal sensory function, no focal deficits noted. [] Psychologic: crying on arrival, anxious Current Patient Data Vital Signs Vital Signs Date Time Temp Pulse Resp B/P (MAP) Pulse Ox O2 Delivery O2 Flow Rate FiO2 01/08/19 04:32 19 99 Room Air 01/08/19 03:11 97.9 89 150/75 (100) 97.9 Lab Values Laboratory Tests Test 01/08/19 03:21 Glucose (Fingerstick) 101 mg/dL (70-99) H EKG EKG [] Radiology/Procedures Radiology/Procedures [] Course & Med Decision Making Course & Med Decision Making Pertinent Labs and Imaging studies reviewed. (See chart for details) []53 yo female with history of chronic pain diabetes prior kidney stones pre senting with back pain. Palpable spasm on exam reproducible with movement really think this is muscular type pain. Recent CT scan showed no ureteral or instructing stone this is her third ER visit for pain control. I tried to reassure her as best I could. There seemed to be some anxiety overlay to her symptoms she was crying significantly. She seemed improved after Ativan and a small dose of Haldol. Neurologically intact no trauma don't think she is having a [employer] emergency Dragon Disclaimer Laina Disclaimer This electronic medical record was generated, in whole or in part, using a voice recognition dictation system. Departure Departure Impression: Primary Impression: Acute exacerbation of chronic low back pain Disposition: HOME, SELF-CARE Condition: STABLE Referrals: HERON EASON MD (PCP) Patient Instructions: Back Pain, Adult, [id number] Scripts Cyclobenzaprine Hcl (CYCLOBENZAPRINE HCL) 5 Mg Tablet 5 MG PO PRN TID PRN for PAIN, #15 TAB Prov: LORENZO GONZALES MD 01/08/19 LORENZO GONZALES MD Jan 08, 2019 05:23
== END 2019-01-08 04:30 | disposition home or self-care (01) ==
LOC: ER 03:09
DX: G89.29 Other chronic pain (principal); M54.5 Low back pain; E11.40 Type 2 diabetes mellitus with diabetic neuropathy, unspecified; I10 Essential (primary) hypertension; Z87.442 Personal history of urinary calculi; Z90.710 Acquired absence of both cervix and uterus; Z88.8 Allergy status to other drugs, medicaments and biological substances
CPT/HCPCS: 82962; 96372; 99284; J1630; J2060

== ENCOUNTER → 2019-03-11 | Outpatient (CLI) | payer OTHER, MEDICAID ==
[~2019-03-11] MED LIST changes: +CYCL5TAB PO
--- NOTE | 2019-03-12 08:37 | RAD ---
Indication: Possible nasal fracture. TECHNIQUE: 3 views of the nasal bone COMPARISON: None FINDINGS: No apparent nasal bone fracture noted. No soft tissue swelling overlying the nasal bone. Nasal septum is midline. Visualized paranasal sinuses are well-aerated. IMPRESSION: As above. Electronically signed by: Reji Hayes DO (03/12/2019 8:34 AM) [facility]
== END | disposition home or self-care (01) ==
LOC: RAD 15:52
PROVIDERS: ATTEND Family Medicine
DX: S02.2XXA Fracture of nasal bones, initial encounter for closed fracture (principal); X58.XXXA Exposure to other specified factors, initial encounter; Y93.89 Activity, other specified; Y92.89 Other specified places as the place of occurrence of the external cause; Y99.8 Other external cause status
CPT/HCPCS: 70160

== ENCOUNTER 2020-12-29 10:50 | Emergency (ER) | payer OTHER, MEDICAID ==
[~2020-12-29] VITALS: Ht 175.3 cm; Wt 104.5 kg
[~2020-12-29 10:50] MED LIST changes: +TRAZ-123 PO; -TRAZ-86 PO
[2020-12-29 13:38] LABS: BASO % 1 % (0-3); EOS % 0 % (0-3); HEMOGLOBIN 14.7 g/dL (12.0-15.5); LYMPH % 13 % (24-48); MEAN CORPUSCULAR HEMOGLOBIN 33 pg (25-35); MEAN CORPUSCULAR HGB CONC 34 g/dL (31-37); MEAN CORPUSCULAR VOLUME 96 fL (79-100); MONO # 0.2 x10^3/uL (0.0-1.1); MONO % 3 % (0-9); NEUT # 6.5 x10^3/uL (1.8-7.7); NEUT % 84 % (31-73); PLATELET COUNT 286 x10^3/uL (140-400); RED BLOOD COUNT 4.47 x10^6/uL (3.50-5.40); RED CELL DISTRIBUTION WIDTH 14.3 % (11.5-14.5); WHITE BLOOD COUNT 7.8 x10^3/uL (4.0-11.0)
[2020-12-29] MEDS ORDERED: IV NORMAL SALINE 1000ML BAG 1,000 ML IV ONE (13:45)
[2020-12-29] MEDS ORDERED: METOCLOPRAMIDE HCL 10 MG/2 ML VIAL. IVP ONE (13:45)
[2020-12-29 13:50] LABS: CALCIUM 10.1 mg/dL (8.5-10.1); CREATININE 1.1 mg/dL (0.6-1.0); GFR 61.9; POTASSIUM 3.2 mmol/L (3.5-5.1)
[2020-12-29 13:55] LABS: ALBUMIN 4.4 g/dL (3.4-5.0); MAGNESIUM 2.3 mg/dL (1.8-2.4); TOTAL BILIRUBIN 0.3 mg/dL (0.2-1.0); TOTAL PROTEIN 8.9 g/dL (6.4-8.2)
[2020-12-29] MEDS ORDERED: POTASSIUM PHOSPHATE,MONOBASIC 500 MG TABLET. PO STA (14:25)
[2020-12-29 14:30] LABS: BILIRUBIN,URINE NEGATIVE (NEG); CLARITY,URINE CLEAR; COLOR,URINE YELLOW; NITRITE,URINE NEGATIVE (NEG); PROTEIN,URINE 100 mg/dL (NEG-TRACE); UROBILINOGEN,URINE 0.2 mg/dL (0.2 mg/dL)
[2020-12-29] MEDS ORDERED: MORPHINE SULFATE 4 MG/ML INJ. IV ONE (14:30)
[2020-12-29 14:46] LABS: BACTERIA,URINE FEW /HPF (0-FEW); WBC,URINE OCC /HPF (0-4)
[2020-12-29 14:48] LABS: RBC,URINE RARE /HPF (0-2)
--- NOTE | 2020-12-29 15:05 | PHYS DOC ---
Past Medical History Past Medical History: Diabetes-Type II, Hypertension, Kidney Stone, Other Additional Past Medical Histor: neuropathy,CHRONIC BACK PAIN Past Surgical History: Hysterectomy, Other Additional Past Surgical Histo: CARPAL TUNNEL,TUMOR BIOPSY/L BREAST,eye surgery Smoking Status: Former Smoker Alcohol Use: None Drug Use: Marijuana General Adult EDM: Chief Complaint: NAUSEA/VOMITING/DIARRHEA HPI: HPI: Patient is a 55 year old female who presented to ER for nausea vomiting and abdominal pain for 3 days. Patient says she could not keep anything down. She has history of diabetic and gastroparesis. She denies any fever, no cough, no chest pain, no trouble breathing. Patient states she has tried to take her medication at home but she could not keep it down so she came in for evaluation. Review of Systems: Review of Systems: Constitutional: Denies fever or chills. [] Eyes: Denies change in visual acuity. [] HENT: Denies nasal congestion or sore throat. [] Respiratory: Denies cough or shortness of breath. [] Cardiovascular: Denies chest pain or edema. [] GI: Positive for abdominal pain, nausea, vomiting. : Denies dysuria. [] Musculoskeletal: Denies back pain or joint pain. [] Integument: Denies rash. [] Neurologic: Denies headache, focal weakness or sensory changes. [] Endocrine: Denies polyuria or polydipsia. [] Lymphatic: Denies swollen glands. [] Psychiatric: Denies depression or anxiety. [] Heart Score: C/O Chest Pain: N/A Risk Factors: Risk Factors: DM, Current or recent (<one month) smoker, HTN, HLP, family history of CAD, obesity. Risk Scores: Score 0 - 3: 2.5% MACE over next 6 weeks - Discharge Home Score 4 - 6: 20.3% MACE over next 6 weeks - Admit for Clinical Observation Score 7 - 10: 72.7% MACE over next 6 weeks - Early Invasive Strategies Current Medications: Current Medications Medications (Trade) Dose Ordered Sig/Maribel Start Time Stop Time Status Last Admin Dose Admin Metoclopramide HCl (Reglan Vial) 10 mg 1X ONCE 12/29/20 13:45 12/29/20 13:46 DC 12/29/20 13:40 10 MG Morphine Sulfate (Morphine Sulfate) 4 mg 1X ONCE 12/29/20 14:30 12/29/20 14:31 DC Potassium Phosphate (K-Phos Original) 500 mg 1X STAT 12/29/20 14:25 12/29/20 14:31 DC Sodium Chloride 1,000 ml @ 1,000 mls/hr 1X ONCE 12/29/20 13:45 12/29/20 14:44 DC 12/29/20 13:39 1,000 MLS/HR Allergies: Allergies: Allergies Coded Allergies Type Severity Reaction Last Updated Verified lisinopril Allergy Severe Swelling 05/17/16 Yes ibuprofen Adverse Reaction Intermediate Nausea and Vomiting 12/22/15 Yes Physical Exam: PE: Constitutional: Well developed, well nourished, no acute distress, non-toxic appearance. [] HENT: Normocephalic, atraumatic, bilateral external ears normal, oropharynx moist, no oral exudates, nose normal. [] Eyes: PERRLA, EOMI, conjunctiva normal, no discharge. [] Neck: Normal range of motion, no tenderness, supple, no stridor. [] Cardiovascular:Heart rate regular rhythm, no murmur [] Lungs & Thorax: Bilateral breath sounds clear to auscultation [] Abdomen: Bowel sounds normal, soft, There is tenderness to palpation in epigastric area, no masses, no pulsatile masses. [] Skin: Warm, dry, no erythema, no rash. [] Back: No tenderness, no CVA tenderness. [] Extremities: No tenderness, no cyanosis, no clubbing, ROM intact, no edema. [] Neurologic: Alert and oriented X 3, normal motor function, normal sensory function, no focal deficits noted. [] Psychologic: Affect normal, judgement normal, mood normal. [] Current Patient Data: Labs: Laboratory Tests Test 12/29/20 13:22 12/29/20 13:29 Urine Collection Type Unknown Urine Color Yellow Urine Clarity Clear Urine pH 5.0 (<5.0-8.0) Urine Specific [place] >=1.030 (1.000-1.030) Urine Protein 100 mg/dL (NEG-TRACE) Urine Glucose (UA) >=1000 mg/dL (NEG) Urine Ketones (Stick) 15 mg/dL (NEG) Urine Blood Small (NEG) Urine Nitrite Negative (NEG) Urine Bilirubin Negative (NEG) Urine Urobilinogen Dipstick 0.2 mg/dL (0.2 mg/dL) Urine Leukocyte Esterase Negative (NEG) Urine RBC Rare /HPF (0-2) Urine WBC Occ /HPF (0-4) Urine Squamous Epithelial Cells Many /LPF Urine Bacteria Few /HPF (0-FEW) White Blood Count 7.8 x10^3/uL (4.0-11.0) Red Blood Count 4.47 x10^6/uL (3.50-5.40) Hemoglobin 14.7 g/dL (12.0-15.5) Hematocrit 43.0 % (36.0-47.0) Mean Corpuscular Volume 96 fL (79-100) Mean Corpuscular Hemoglobin 33 pg (25-35) Mean Corpuscular Hemoglobin Concent 34 g/dL (31-37) Red Cell Distribution Width 14.3 % (11.5-14.5) Platelet Count 286 x10^3/uL (140-400) Neutrophils (%) (Auto) 84 % (31-73) H Lymphocytes (%) (Auto) 13 % (24-48) L Monocytes (%) (Auto) 3 % (0-9) Eosinophils (%) (Auto) 0 % (0-3) Basophils (%) (Auto) 1 % (0-3) Neutrophils # (Auto) 6.5 x10^3/uL (1.8-7.7) Lymphocytes # (Auto) 1.0 x10^3/uL (1.0-4.8) Monocytes # (Auto) 0.2 x10^3/uL (0.0-1.1) Eosinophils # (Auto) 0.0 x10^3/uL (0.0-0.7) Basophils # (Auto) 0.0 x10^3/uL (0.0-0.2) Sodium Level 148 mmol/L (136-145) H Potassium Level 3.2 mmol/L (3.5-5.1) L Chloride Level 106 mmol/L (98-107) Carbon Dioxide Level 27 mmol/L (21-32) Anion Gap 15 (6-14) H Blood Urea Nitrogen 26 mg/dL (7-20) H Creatinine 1.1 mg/dL (0.6-1.0) H Estimated GFR (Cockcroft-Gault) 61.9 BUN/Creatinine Ratio 24 (6-20) H Glucose Level 196 mg/dL (70-99) H Calcium Level 10.1 mg/dL (8.5-10.1) Magnesium Level 2.3 mg/dL (1.8-2.4) Total Bilirubin 0.3 mg/dL (0.2-1.0) Aspartate Amino Transferase (AST) 40 U/L (15-37) H Alanine Aminotransferase (ALT) 60 U/L (14-59) H Alkaline Phosphatase 95 U/L (46-116) Total Protein 8.9 g/dL (6.4-8.2) H Albumin 4.4 g/dL (3.4-5.0) Albumin/Globulin Ratio 1.0 (1.0-1.7) Lipase 176 U/L (73-393) Laboratory Tests 12/29/20 13:29 Laboratory Tests 12/29/20 13:29 Vital Signs: Vital Signs Date Time Temp Pulse Resp B/P (MAP) Pulse Ox O2 Delivery O2 Flow Rate FiO2 12/29/20 12:21 97.8 78 20 201/105 (100) 99 Room Air 97.8 EKG: EKG: [] Radiology/Procedures: Radiology/Procedures: [facility] [address] [place], [place] [id number] IMAGING REPORT Signed PATIENT: LADI NUNEZ ACCOUNT: [id number] : 1965 LOCATION: ER AGE: 55 SEX: F EXAM STATUS: REG ER ORD. PHYSICIAN: TONY LACY DO REASON: abdominal pain, nausea, vomiting PROCEDURE: ACUTE ABDOMEN SERIES EXAMINATION: Abdominal complete acute radiograph. VIEWS: Single view of the chest and 2 views of the abdomen COMPARISON: 01/06/2019 INDICATION: 55 years, Female, abdominal pain, nausea and vomiting. FINDINGS: Nonobstructive bowel gas pattern. Moderate amount of stool throughout the colon. No gross pneumoperitoneum.No abnormal intra-abdominal calcifications. Normal cardiomediastinal silhouette. No focal consolidation, pleural effusion or p neumothorax.No acute process process. IMPRESSION: Nonobstructive bowel gas pattern. Moderate amount of stool throughout the colon. Electronically signed by: Henri Juarez MD (12/29/2020 3:56 PM) [id number] DICTATED and SIGNED BY: HENRI JUAREZ MD DATE: 12/29/20 [id number] 0 Course & Med Decision Making: Course & Med Decision Making Pertinent Labs and Imaging studies reviewed. (See chart for details) Patient is a 55-year-old female with history of diabetic, gastroparesis presented to ER due to nausea vomiting and abdominal pain in the epigastric area. Her symptom is consistent with her chronic gastroparesis. Patient was given IV fluid, IV nausea medication, IV pain medication in the ER. Patient was doing much better. Patient was discharged home in stable condition. Dragon Disclaimer: Dragon Disclaimer: This electronic medical record was generated, in whole or in part, using a voice recognition dictation system. Departure Departure Impression: Primary Impression: Gastroparesis Disposition: HOME / SELF CARE / HOMELESS Admitting Physician: ISABELL (Dr. MARTHA LOVELACE) Condition: IMPROVED Referrals: UNKNOWN PCP NAME (PCP) Please follow up with [facility] this week. [address], [address] [place] [address] Phone number: [phone] Patient Instructions: Gastroparesis Additional Instructions: Thank you for visiting our Emergency Department. We appreciate you trusting us with your care. If any additional problems come up don't hesitate to return to visit us. Please follow up with your primary care provider so they can plan additional care if needed and know about the problem that you had. If symptoms worsen come back to the Emergency Department. Any concerning symptoms that start such as chest pain, shortness of air, weakness or numbness on one side of the body, running high fevers or any other concerning symptoms return to the ER. Scripts Metoclopramide Hcl (REGLAN) 10 Mg Tablet 1 TAB PO QID PRN for NAUSEA, #30 TAB 0 Refills before food and bedtime Prov: TONY LACY DO 12/29/20 Dicyclomine Hcl (DICYCLOMINE HCL) 20 Mg Tablet 1 TAB PO TID PRN for ABDOMINAL CRAMPS, #30 TAB 1 Refill Prov: TONY LACY DO 12/29/20 TONY LACY DO Dec 29, 2020 15:05
--- NOTE | 2020-12-29 15:58 | RAD ---
EXAMINATION: Abdominal complete acute radiograph. VIEWS: Single view of the chest and 2 views of the abdomen COMPARISON: 01/06/2019 INDICATION: 55 years, Female, abdominal pain, nausea and vomiting. FINDINGS: Nonobstructive bowel gas pattern. Moderate amount of stool throughout the colon. No gross pneumoperit oneum.No abnormal intra-abdominal calcifications. Normal cardiomediastinal silhouette. No focal conso lidation, pleural effusion or pneumothorax.No acute process process. IMPRESSION: Nonobstructive bowel gas pattern. Moderate amount of stool throughout the colon. Electronically signed by: Emilia Juarez MD (12/29/2020 3:56 PM) [id number]
[2020-12-29] MEDS ORDERED: DICY20TA3 PO (16:21)
[2020-12-29] MEDS ORDERED: METO10TA81 PO (16:21)
[2020-12-29 16:50] VITALS: BP 201/92
== END 2020-12-29 17:04 | disposition home or self-care (01) ==
LOC: ER 10:50
DX: E11.43 Type 2 diabetes mellitus with diabetic autonomic (poly)neuropathy (principal); K31.84 Gastroparesis; I10 Essential (primary) hypertension; G89.29 Other chronic pain; E11.40 Type 2 diabetes mellitus with diabetic neuropathy, unspecified; Z87.442 Personal history of urinary calculi; Z88.8 Allergy status to other drugs, medicaments and biological substances
CPT/HCPCS: 36415; 74022; 80053; 81001; 83690; 83735; 85025; 96361; 96374; 96375; 99285; J2270; J2765; J7030